=== PATIENT | female | born 1970 | race Caucasian/White ===

== ENCOUNTER 2018-04-30 12:57 | Emergency (ER) | payer MEDICAID, SELFPAY ==
[2018-04-30 13:05] VITALS: BP 159/122; PULSE 108; RESP 16; TEMP 36; O2SAT 95
--- NOTE | 2018-04-30 14:13 | DI.CT_ITS ---
SYMPTOMS/DIAGNOSIS: CHEST PAIN RETROSTERNAL CTA OF THE CHEST: CT angiography was performed with multi slice acquisition and multi planar and 3D reconstruction. There are no prior comparison exams. The aorta and pulmonary arteries are well opacified with IV contrast. There is no evidence of aortic dissection, aneurysm or pulmonary emboli. The heart size is normal. No pleural or pericardial effusions are seen. The lungs are clear. There is no evidence of infiltrate or pneumothorax. No rib or spine fractures are identified. The patient is status post cholecystectomy. The visualized portions of the liver are unremarkable. The spleen, visualized portions of the pancreas, kidneys and adrenals also appear normal. IMPRESSION: Negative chest CT. No evidence of aortic dissection or other acute abnormality.
[2018-04-30] MEDS: FAMOTIDINE 20 MG/50 ML BAG 100 MG IVPB (14:21)
[2018-04-30 14:27] LABS: Abs Immature Grans 0.09 k/cumm (0.0-0.09); Absolute Lymphocyte Count 2.59 k/cumm (1.2-3.4); Basophils % 0.4; Eosinophils % 0.7; HCT 44.1 % (36.0-46.0); HGB 15.3 g/dL (12.0-15.5); Immature Grans % 0.6; Lymphocytes % 15.9; Mean Corp. HGB Concentration 34.7 g/dL (32.0-36.0); Mean Corpuscular Hemoglobin 32.8 pg (27.0-33.0); Mean Corpuscular Volume 94.4 fL (80-95); Mean Platelet Volume 10.7 fL (8.0-11.0); Neutrophils % 76.4; Platelet Count 349 x1000/uL (130-400); RBC 4.67 m/cumm (4.00-5.20); RBC Distribution Width 13.4 % (11.7-14.6)
[2018-04-30 14:38] LABS: Absolute Basophil Count 0.07 k/cumm (0.0-0.2); Absolute Eosinophil Count 0.11 k/cumm (0.0-0.7); Absolute Monocyte Count 0.98 k/cumm (0.11-0.7); Absolute Neutrophil Count 12.45 k/cumm (1.2-6.7)
[2018-04-30 14:41] LABS: ALT 24 U/L (12-78); AST 23 U/L (15-37); Albumin 4.4 g/dL (3.4-5.0); Alkaline Phosphatase 89 U/L (46-116); Anion Gap 12.3 mmol/L (3-11); BUN 9 mg/dL (7-18); Bilirubin, Direct 0.11 mg/dL (0.00-0.20); Bilirubin, Total 0.8 mg/dL (0.2-1.0); CO2 22.7 mmol/L (21.0-32.0); CREATININE 0.86 mg/dL (0.55-1.02); Calcium 9.2 mg/dL (8.5-10.1); Chloride 101 mmol/L (98-107); Glucose 121 mg/dL (70-100); Magnesium 2.2 mg/dL (1.8-2.4); Potassium 3.7 mmol/L (3.5-5.1); Sodium 136 mmol/L (136-145); Total Protein 8.7 g/dL (6.4-8.2)
[2018-04-30 14:42] LABS: Troponin I 1.14 ng/mL (0.00-0.06)
--- NOTE | 2018-04-30 15:06 | W.ED.GENAD ---
Discharge Plan Disposition Patient Disposition: [facility] Discharge Details Chief Complaint: Chest Pain Clinical Impression: Acute non-ST elevation myocardial infarction (NSTEMI) Primary Care Provider: NONE,NONE ED Provider: Kong Coon Medical Decision Making 15:00 --47-year-old female smoker here with chest pain it has been intermittent over the past 4 days. Patient tachycardic and hypertensive on arrival. Not hypoxic and no respiratory distress For acute aortic dissection versus ACS versus reflux esophagitis versus other Plan is to CTA chest. ECG reviewed and interpreted by me: Normal sinus rhythm 76 bpm, normal axis, no STEMI, nondiagnostic. Labs reviewed and troponin is elevated at 1.14. Should CT be unremarkable, plan is to treat for NSTEMI. 16:30 --CT of the chest interpreted by radiology: No dissection and no pulmonary embolism. Starting heparin, Plavix, aspirin, nitroglycerin sublingual and then infusion. Spoke with [facility] [place] to request cardiology transfer. 16:55 -- Spoke with cardiology at [facility] - Dr. Fulton to accept patient in transfer. Agrees with current medication - nitro and heparin. 17:28 -- Patient reassessed and pain resolved on nitro infusion at 10mcg/min. BP improved. HPI General Mode of arrival: ambulatory. Date/Time Provider Initiated Documentation: 04/30/18 14:06. Limitations to Documentation: no limitations. Information obtained by: patient. HPI Narrative: 47-year-old female smoker, otherwise healthy, presents with chief complaint of chest pain. Patient notes that chest pain started 4 days ago and has been intermittent since onset. Pain feels like a moderate burning tightness in her chest. She specifically notes it feels like something is going to tear. Patient thought her symptoms were heartburn. Pain is somewhat positional and changes with inspiration. Patient has no associated shortness of breath. She does have associated fatigue as well as intermittent diaphoresis. Patient denies pain at this time. General Stated Complaint: Chest Pain BETTINA: 2 Review of Systems Review of Systems All systems reviewed & are unremarkable except as noted in HPI and below Cardiovascular Reports as per HPI Respiratory Reports as per HPI Integumentary/Breasts Denies dry skin PFSH Social History Smoking/Tobacco Use Status: Current every day Exam Const General: cooperative and no acute distress HENMT Head: normocephalic and atraumatic Mouth: moist mucous membranes Eyes Conjunctivae: normal conjunctivae Sclera: normal sclerae EOM: EOM intact bilaterally Neck Neck: trachea midline and supple Resp Auscultation: clear to auscultation bilaterally, no rales, no rhonchi and no wheezes Cardio Jugular venous pressure: no JVD Rate: tachycardic Rhythm: regular rhythm GI Palpation: soft, not firm, no guarding, no masses, not rigid and nontender Skin General skin exam: no rashes or lesions noted Neuro General: alert, awake, oriented x3 and tone normal Extrem General: no edema Psych Appearance: grossly normal Mental Status: mental status grossly normal Speech and Movement: speech and movement normal Course Vital Signs Temperature 36 C L 04/30/18 13:05 Pulse 108 H 04/30/18 13:05 Respiratory Rate 16 04/30/18 13:05 Blood Pressure 159/122 H 04/30/18 13:05 Pulse Oximetry 95 04/30/18 13:05 Temperature 36 C L 04/30/18 13:05 Temperature Source Skin 04/30/18 13:05 Pulse 108 H 04/30/18 13:05 Respiratory Rate 16 04/30/18 13:05 Respiratory Effort 04/30/18 13:09 Blood Pressure 159/122 H 04/30/18 13:05 Blood Pressure Position Sitting 04/30/18 13:05 Pulse Oximetry 95 04/30/18 13:05 Oxygen Delivery Method Room Air 04/30/18 13:05 Oxygen Flow Rate 0 04/30/18 13:05 Pain Level 5 04/30/18 13:05 Lab/Test Results Lab/Test Results: Laboratory Tests Range/Units 04/30/18 04/30/18 14:17 14:17 WBC (4.4-10.8) k/cumm 16.30 H RBC (4.00-5.20) m/cumm 4.67 Hgb (12.0-15.5) g/dL 15.3 Hct (36.0-46.0) % 44.1 MCV (80-95) fL 94.4 MCH (27.0-33.0) pg 32.8 MCHC (32.0-36.0) g/dL 34.7 RDW (11.7-14.6) % 13.4 Plt Count (130-400) x1000/uL 349 MPV (8.0-11.0) fL 10.7 Immature Gran % 0.6 Neutrophils % 76.4 Lymphocytes % 15.9 Monocytes % 6.0 Eosinophils % 0.7 Basophils % 0.4 Absolute Neutrophils (1.2-6.7) k/cumm 12.45 H Absolute Lymphocytes (1.2-3.4) k/cumm 2.59 Absolute Monocytes (0.11-0.7) k/cumm 0.98 H Absolute Eosinophils (0.0-0.7) k/cumm 0.11 Absolute Basophils (0.0-0.2) k/cumm 0.07 Sodium (136-145) mmol/L 136 Potassium (3.5-5.1) mmol/L 3.7 Chloride (98-107) mmol/L 101 Carbon Dioxide (21.0-32.0) mmol/L 22.7 Anion Gap (3-11) mmol/L 12.3 H BUN (7-18) mg/dL 9 Creatinine (0.55-1.02) mg/dL 0.86 Estimated GFR/1.73 m2 (mL/min/1.73m2) >= 60.00 Glucose (70-100) mg/dL 121 H Calcium (8.5-10.1) mg/dL 9.2 Magnesium (1.8-2.4) mg/dL 2.2 Total Bilirubin (0.2-1.0) mg/dL 0.8 Conjugated Bilirubin (0.00-0.20) mg/dL 0.11 AST (15-37) U/L 23 ALT (12-78) U/L 24 Alkaline Phosphatase (46-116) U/L 89 Troponin I (0.00-0.06) ng/mL 1.14 H Total Protein (6.4-8.2) g/dL 8.7 H Albumin (3.4-5.0) g/dL 4.4 Critical Care Time Critical Care Time: Yes Total Critical Care Time: 78 Attestation: I spent >78 min addressing this patient's immediate life threats.
--- NOTE | 2018-04-30 15:11 | ED.GENADUL_ITS ---
Discharge Plan Disposition Patient Disposition: [facility] Discharge Details Chief Complaint: Chest Pain Clinical Impression: Acute non-ST elevation myocardial infarction (NSTEMI) Primary Care Provider: NONE,NONE ED Provider: Kong Coon Medical Decision Making 15:00 --47-year-old female smoker here with chest pain it has been intermittent over the past 4 days. Patient tachycardic and hypertensive on arrival. Not hypoxic and no respiratory distress For acute aortic dissection versus ACS versus reflux esophagitis versus other Plan is to CTA chest. ECG reviewed and interpreted by me: Normal sinus rhythm 76 bpm, normal axis, no STEMI, nondiagnostic. Labs reviewed and troponin is elevated at 1.14. Should CT be unremarkable, plan is to treat for NSTEMI. 16:30 --CT of the chest interpreted by radiology: No dissection and no pulmonary embolism. Starting heparin, Plavix, aspirin, nitroglycerin sublingual and then infusion. Spoke with [facility] [place] transfer center to request cardiology transfer. 16:55 -- Spoke with cardiology at [facility] [place] - Dr. Fulton to accept patient in transfer. Agrees with current medication - nitro and heparin. 17:28 -- Patient reassessed and pain resolved on nitro infusion at 10mcg/min. BP improved. HPI General Mode of arrival: ambulatory . Date/Time Provider Initiated Documentation: 04/30/18 14:06 . Limitations to Documentation: no limitations . Information obtained by: patient . HPI Narrative: 47-year-old female smoker, otherwise healthy, presents with chief complaint of chest pain. Patient notes that chest pain started 4 days ago and has been intermittent since onset. Pain feels like a moderate burning tightness in her chest. She specifically notes it feels like something is going to tear. Patient thought her symptoms were heartburn. Pain is somewhat positional and changes with inspiration. Patient has no associated shortness of breath. She does have associated fatigue as well as intermittent diaphoresis. Patient denies pain at this time. General Stated Complaint: Chest Pain BETTINA: 2 Review of Systems Review of Systems All systems reviewed & are unremarkable except as noted in HPI and below Cardiovascular Reports as per HPI Respiratory Reports as per HPI Integumentary/Breasts Denies dry skin PFSH Social History Smoking/Tobacco Use Status: Current every day Exam Const General: cooperative and no acute distress HENMT Head: normocephalic and atraumatic Mouth: moist mucous membranes Eyes Conjunctivae: normal conjunctivae Sclera: normal sclerae EOM: EOM intact bilaterally Neck Neck: trachea midline and supple Resp Auscultation: clear to auscultation bilaterally, no rales, no rhonchi and no wheezes Cardio Jugular venous pressure: no JVD Rate: tachycardic Rhythm: regular rhythm GI Palpation: soft, not firm, no guarding, no masses, not rigid and nontender Skin General skin exam: no rashes or lesions noted Neuro General: alert, awake, oriented x3 and tone normal Extrem General: no edema Psych Appearance: grossly normal Mental Status: mental status grossly normal Speech and Movement: speech and movement normal Course Vital Signs Temperature 36 C L 04/30/18 13:05 Pulse 108 H 04/30/18 13:05 Respiratory Rate 16 04/30/18 13:05 Blood Pressure 159/122 H 04/30/18 13:05 Pulse Oximetry 95 04/30/18 13:05 Temperature 36 C L 04/30/18 13:05 Temperature Source Skin 04/30/18 13:05 Pulse 108 H 04/30/18 13:05 Respiratory Rate 16 04/30/18 13:05 Respiratory Effort 04/30/18 13:09 Blood Pressure 159/122 H 04/30/18 13:05 Blood Pressure Position Sitting 04/30/18 13:05 Pulse Oximetry 95 04/30/18 13:05 Oxygen Delivery Method Room Air 04/30/18 13:05 Oxygen Flow Rate 0 04/30/18 13:05 Pain Level 5 04/30/18 13:05 Lab/Test Results Lab/Test Results: Laboratory Tests Range/Units 04/30/18 04/30/18 14:17 14:17 WBC (4.4-10.8) k/cumm 16.30 H RBC (4.00-5.20) m/cumm 4.67 Hgb (12.0-15.5) g/dL 15.3 Hct (36.0-46.0) % 44.1 MCV (80-95) fL 94.4 MCH (27.0-33.0) pg 32.8 MCHC (32.0-36.0) g/dL 34.7 RDW (11.7-14.6) % 13.4 Plt Count (130-400) x1000/uL 349 MPV (8.0-11.0) fL 10.7 Immature Gran % 0.6 Neutrophils % 76.4 Lymphocytes % 15.9 Monocytes % 6.0 Eosinophils % 0.7 Basophils % 0.4 Absolute Neutrophils (1.2-6.7) k/cumm 12.45 H Absolute Lymphocytes (1.2-3.4) k/cumm 2.59 Absolute Monocytes (0.11-0.7) k/cumm 0.98 H Absolute Eosinophils (0.0-0.7) k/cumm 0.11 Absolute Basophils (0.0-0.2) k/cumm 0.07 Sodium (136-145) mmol/L 136 Potassium (3.5-5.1) mmol/L 3.7 Chloride (98-107) mmol/L 101 Carbon Dioxide (21.0-32.0) mmol/L 22.7 Anion Gap (3-11) mmol/L 12.3 H BUN (7-18) mg/dL 9 Creatinine (0.55-1.02) mg/dL 0.86 Estimated GFR/1.73 m2 (mL/min/1.73m2) >= 60.00 Glucose (70-100) mg/dL 121 H Calcium (8.5-10.1) mg/dL 9.2 Magnesium (1.8-2.4) mg/dL 2.2 Total Bilirubin (0.2-1.0) mg/dL 0.8 Conjugated Bilirubin (0.00-0.20) mg/dL 0.11 AST (15-37) U/L 23 ALT (12-78) U/L 24 Alkaline Phosphatase (46-116) U/L 89 Troponin I (0.00-0.06) ng/mL 1.14 H Total Protein (6.4-8.2) g/dL 8.7 H Albumin (3.4-5.0) g/dL 4.4 Critical Care Time Critical Care Time: Yes Total Critical Care Time: 78 Attestation: I spent >78 min addressing this patient's immediate life threats.
[2018-04-30] MEDS: Omnipaque 350 MG/ML 100 ML BTL IJ (15:30)
[2018-04-30 16:35] LABS: Troponin I 1.58 ng/mL (0.00-0.06)
[2018-04-30] MEDS: Aspirin 325 MG TAB PO (16:47)
[2018-04-30] MEDS: Clopidogrel 300 MG TAB PO (16:47)
[2018-04-30 17:18] LABS: PTT Activated 25.2 sec (21.0-31.4)
[2018-04-30 17:37] VITALS: BP 129/84; PULSE 86; RESP 18; TEMP 36.8; O2SAT 99
[2018-04-30 18:22] VITALS: BP 129/84; PULSE 86; RESP 18; TEMP 36.8; O2SAT 99
== END 2018-04-30 18:20 | disposition short-term general hospital (02) ==
PROVIDERS: Emergency Provider Student in an Organized Health Care Education/Training Program
DX: I21.4 Non-ST elevation (NSTEMI) myocardial infarction (principal); F17.210 Nicotine dependence, cigarettes, uncomplicated
CPT/HCPCS: 36415; 71275; 80053; 80076; 96365; 96366; 96367; 96368; 96376; 99291; 99292; 83735; 84484; 85025; 85730; J3490

== ENCOUNTER 2018-06-07 13:22 | Outpatient (RCR) | payer MEDICAID, SELFPAY | END 2018-06-07 23:59 | disposition home or self-care (01) | LOC: CR 13:22 | PROVIDERS: Visit Provider Family Medicine | DX: I21.4 Non-ST elevation (NSTEMI) myocardial infarction (principal); Z51.89 Encounter for other specified aftercare | CPT/HCPCS: S9472 ==

== ENCOUNTER 2018-06-28 13:50 | Outpatient (RCR) | payer MEDICAID, SELFPAY | END 2018-07-08 23:59 | disposition home or self-care (01) | LOC: CR 13:50 | PROVIDERS: Visit Provider Family Medicine | DX: I25.2 Old myocardial infarction (principal); Z51.89 Encounter for other specified aftercare | CPT/HCPCS: S9472 ==

== ENCOUNTER 2018-08-05 09:30 | Outpatient (RCR) | payer MEDICAID, SELFPAY | END 2018-08-08 23:59 | disposition home or self-care (01) | LOC: CR 09:30 | PROVIDERS: Visit Provider Family Medicine | DX: I25.2 Old myocardial infarction (principal); Z51.89 Encounter for other specified aftercare | CPT/HCPCS: S9472 ==

== ENCOUNTER 2018-09-04 09:00 | Outpatient (RCR) | payer MEDICAID, SELFPAY | END 2018-09-05 23:59 | disposition home or self-care (01) | LOC: CR 09:00 | PROVIDERS: Visit Provider Family Medicine | DX: I25.2 Old myocardial infarction (principal); Z51.89 Encounter for other specified aftercare | CPT/HCPCS: S9472 ==

== ENCOUNTER 2018-09-13 09:00 | Outpatient (RCR) | payer MEDICAID, SELFPAY | END 2018-10-06 23:59 | disposition home or self-care (01) | LOC: CR 09:00 | PROVIDERS: Visit Provider Family Medicine | DX: I25.2 Old myocardial infarction (principal); Z51.89 Encounter for other specified aftercare | CPT/HCPCS: S9472 ==

== ENCOUNTER 2018-12-12 23:18 | Inpatient (IN) | payer MEDICAID, SELFPAY ==
--- NOTE | 2018-12-12 00:20 | DI.CT_ITS ---
SYMPTOM/DIAGNOSIS: ABDOMINAL PAIN CT ABDOMEN AND PELVIS: CT scan of the abdomen and pelvis was performed following the uneventful administration of intravenous contrast material. Comparison CT scan is 04/30/18 No acute abnormalities seen in the lung bases. The liver is normal in size. There is again seen pneumobilia. This was present on the prior examination. The patient is status post cholecystectomy. The bile ducts appear stable. The pancreas is within normal limits. No acute abnormality is seen in the spleen. The adrenal glands are unremarkable. The kidneys show normal and symmetric enhancement. No solid renal mass or obstruction is identified. 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 The urinary bladder is intact. The reproductive organs are unremarkable except for a 2.9 cm left ovarian cyst which does show debris internally likely reflecting hemorrhagic cyst. The abdominal aorta is of normal caliber. No aneurysmal dilatation is seen. No significant abdominal or pelvic adenopathy, ascites or pneumoperitoneum is present. The bowel shows no evidence of obstruction or inflammation. No findings to suggest an acute appendicitis are present. A normal appendix is present. No acute osseous abnormality is identified. IMPRESSION: No acute abnormality is seen in the abdomen or pelvis.
--- NOTE | 2018-12-12 23:22 | W.ED.GENAD ---
Discharge Plan Disposition Patient Disposition: [facility] INPATIENT Condition: Poor Discharge Details Chief Complaint: Abd Prob Clinical Impression: Abdominal pain, Elevated LFTs Primary Care Provider: None,None ED Provider: Ayaan Delgado Meds and New Rx's Prescriptions: No Action atorvastatin 80 mg Tablet 80 mg PO QHS RF: 0 clopidogrel [Plavix] 75 mg Tablet 75 mg PO DAILY RF: 0 aspirin 81 mg Tablet,Delayed Release (Dr/Ec) 81 mg PO DAILY RF: 0 famotidine [Pepcid] 20 mg Tablet 20 mg PO BID RF: 0 nitroglycerin 0.4 mg Tablet, Sublingual 0.4 mg SUBLINGUAL Q5-15M PRNRF: 0 albuterol sulfate 90 mcg/actuation Hfa Aerosol Inhaler 2 puff INHALATION QID PRNRF: 0 lisinopril 2.5 mg Tablet 2.5 mg PO DAILY RF: 0 melatonin 5 mg Tablet 5 mg PO HS PRNRF: 0 Medical Decision Making Patient presenting with 4 hours of severe periumbilical abdominal pain radiating to the back. She has associated nausea but denies vomiting. She has had this intermittently for which she is taking H2 laurent before. She is taking 3 tonight with no relief. She denies having chest pain or shortness of breath. She states that this pain is nothing like the pain she had when she had her non-STEMI last fall. She does have tenderness in the upper abdomen with some voluntary guarding. She is Pernell status post cholecystectomy. She is afebrile. IV established and fluids started. Fentanyl and Zofran given for symptoms. Laboratory studies and CT scan ordered. Patient's pain was better with fentanyl. Patient laboratory studies significant for white count of 11.6. Liver function is elevated including total bili, transaminases, alk phos. Lipase is normal. Troponin is normal. Patient required repeat dosing of fentanyl on return from CAT scan. CT scan is read by radiology as nothing acute. However it is noted that she has pneumobilia and dilated common bile duct. In discussion with the patient it does sound like she likely had an ERCP with sphincterotomy prior to the cholecystectomy years ago when this was done. However, with abnormal liver function and the findings of biliary duct dilatation and pneumobilia need to consider this as a source of her pain. Case discussed with GI fellow, Dr. Farley, at [facility]. Imaging has been sent to [facility]. There are no beds at [facility]. Recommend admission here. Patient to be kept n.p.o. with IV fluids and pain medication as needed. Hospitalist to contact GI liver attending at [facility] in the morning for further discussion. Patient does not appear toxic. She is not febrile here. She continues to have recurrent pain on the fentanyl wears off. I have changed her over to morphine. Case discussed with hospitalist here Dr. Anaya chino. Second troponin has been sent and is negative. Patient will be admitted to [facility] for further management. Medical Records Medical records reviewed: Yes I reviewed the patient's medical records. Lab Data Lab results reviewed: Yes I reviewed the patient's lab results. ECG Data Attestation: I personally reviewed and interpreted this ECG (s) as follows: Prior ECG tracings: available for review Interpretation: Sinus rhythm at 97. Normal axis and intervals. Some flattening in leads III and aVF but otherwise no acute changes. HPI General Mode of arrival: ambulatory. Date/Time Provider Initiated Documentation: 12/12/18 23:22. Limitations to Documentation: no limitations. Information obtained by: patient. HPI Narrative: Patient presents to the ED with complaint of periumbilical/epigastric abdominal pain radiating straight through to the back. Pain has been ongoing since 19:30. Described as sharp and burning in nature. Nausea but no vomiting. Has had this pain intermittently since she had her heart attack last year. Is not having chest pain or upper back pain. Has no shortness of breath. Is treated with H2 blockers intermittently by her doctors at [facility]. She has taken 3 tonight with no relief of pain. She is status post cholecystectomy and has had exploratory laps for [employer] issues in the past. She had a fever last weekend with no other associated symptoms. Those have resolved. She has no diarrhea, black stool, bloody stool. She has no urinary symptoms. She denies caffeine or alcohol use. She denies nonsteroidal use. She denies tobacco use currently. Related Data Home Medications Medication Instructions Recorded Confirmed albuterol sulfate 2 puff INHALATION QID PRN 12/12/18 12/12/18 aspirin 81 mg PO DAILY 12/12/18 12/12/18 atorvastatin 80 mg PO QHS 12/12/18 12/12/18 clopidogrel [Plavix] 75 mg PO DAILY 12/12/18 12/12/18 famotidine [Pepcid] 20 mg PO BID 12/12/18 12/12/18 lisinopril 2.5 mg PO DAILY 12/12/18 12/12/18 melatonin 5 mg PO HS PRN 12/12/18 12/12/18 nitroglycerin 0.4 mg SUBLINGUAL Q5-15M PRN 12/12/18 12/12/18 Allergies Allergy/AdvReac Type Severity Reaction Status Date / Time cefuroxime [From Ceftin] Allergy Intermediate GI Bleeding Unverified 12/12/18 23:30 General BETTINA: 2 Review of Systems Review of Systems 04/21 Review of Systems completed and is negative except as stated above in HPI (Systems reviewed: Const, Eyes, ENT, Resp, CV, GI, , MSK, Skin, Neuro) [facility] Medical History CAD (coronary artery disease) (Chronic) COPD (chronic obstructive pulmonary disease) (Chronic) GERD (gastroesophageal reflux disease) (Chronic) HTN (hypertension) (Chronic) Surgical History History of heart artery stent (Chronic) Hx of exploratory laparotomy (Chronic) S/P cholecystectomy (Chronic) Social History Smoking/Tobacco Use Status: Former Tobacco Use Alcohol Intake: never Substance use type: does not use Do you feel safe in your relationship?: Yes Exam Narrative Exam Narrative: Vitals: Afebrile. Tachycardic and hypertensive likely related to pain and discomfort. Const: WDWN female on stretcher holding abdomen and crying. HEENT: NC/AT. Normal facial exam. Eyes: Normal conjunctiva and sclera. Neck: Supple. Trachea midline. Lungs: Normal respiratory effort. Lungs are clear. Cor: RRR without murmur/gallop. Good radial pulses. GI: Soft and non-distended. Tender in the upper abdominal region, mostly upper vida-umbilcal and epigastric area. Some voluntary guarding. Neuro: A+O x 3. CN grossly in tact. Good strength and no focal deficit. Ext: No C/C/E. No deformity or tenderness. Skin: Warm and dry without rash.
--- NOTE | 2018-12-12 23:26 | ED.GENADUL_ITS ---
Discharge Plan Disposition Patient Disposition: [facility] INPATIENT Condition: Poor Discharge Details Chief Complaint: Abd Prob Clinical Impression: Abdominal pain, Elevated LFTs Primary Care Provider: None,None ED Provider: Ayaan Delgado Meds and New Rx's Prescriptions: No Action atorvastatin 80 mg Tablet 80 mg PO QHS RF: 0 clopidogrel [Plavix] 75 mg Tablet 75 mg PO DAILY RF: 0 aspirin 81 mg Tablet,Delayed Release (Dr/Ec) 81 mg PO DAILY RF: 0 famotidine [Pepcid] 20 mg Tablet 20 mg PO BID RF: 0 nitroglycerin 0.4 mg Tablet, Sublingual 0.4 mg SUBLINGUAL Q5-15M PRNRF: 0 albuterol sulfate 90 mcg/actuation Hfa Aerosol Inhaler 2 puff INHALATION QID PRNRF: 0 lisinopril 2.5 mg Tablet 2.5 mg PO DAILY RF: 0 melatonin 5 mg Tablet 5 mg PO HS PRNRF: 0 Medical Decision Making Patient presenting with 4 hours of severe periumbilical abdominal pain radiating to the back. She has associated nausea but denies vomiting. She has had this intermittently for which she is taking H2 laurent before. She is taking 3 tonight with no relief. She denies having chest pain or shortness of breath. She states that this pain is nothing like the pain she had when she had her non- STEMI last fall. She does have tenderness in the upper abdomen with some voluntary guarding. She is Pernell status post cholecystectomy. She is afebrile. IV established and fluids started. Fentanyl and Zofran given for symptoms. Laboratory studies and CT scan ordered. Patient's pain was better with fentanyl. Patient laboratory studies significant for white count of 11.6. Liver function is elevated including total bili, transaminases, alk phos. Lipase is normal. Troponin is normal. Patient requir ed repeat dosing of fentanyl on return from CAT scan. CT scan is read by radiology as nothing acute. However it is noted that she has pneumobilia and dilated common bile duct. In discussion with the patient it does sound like she likely had an ERCP with sphincterotomy prior to the cholecystectomy years ago when this was done. However, with abnormal liver function and the findings of biliary duct dilatation and pneumobilia need to consider this as a source of her pain. Case discussed with GI fellow, Dr. Farley, at [facility]. Imaging has been sent to [facility]. There are no beds at [facility]. Recommend admission here. Patient to be kept n.p.o. with IV fluids and pain medication as needed. Hospitalist to contact GI liver attending at [facility] in the morning for further discussion. Patient does not appear toxic. She is not febrile here. She continues to have recurrent pain on the fentanyl wears off. I have changed her over to morphine. Case discussed with hospitalist here Dr. Anaya chino. Second troponin has been sent and is negative. Patient will be admitted to [facility] for further management. Medical Records Medical records reviewed: Yes I reviewed the patient's medical records. Lab Data Lab results reviewed: Yes I reviewed the patient's lab results. ECG Data Attestation: I personally reviewed and interpreted this ECG (s) as follows: Prior ECG tracings: available for review Interpretation: Sinus rhythm at 97. Normal axis and intervals. Some flattening in leads III and aVF but otherwise no acute changes. HPI General Mode of arrival: ambulatory . Date/Time Provider Initiated Documentation: 12/12/18 23:22 . Limitations to Documentation: no limitations . Information obtained by: patient . HPI Narrative: Patient presents to the ED with complaint of periumbilical/epigastric abdominal pain radiating straight through to the back. Pain has been ongoing since 19:30. Described as sharp and burning in nature. Nausea but no vomiting. Has had this pain intermittently since she had her heart attack last year. Is not having chest pain or upper back pain. Has no shortness of breath. Is treated with H2 blockers intermittently by her doctors at [facility]. She has taken 3 tonight with no relief of pain. 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 She had a fever last weekend with no other associated symptoms. Those have resolved. She has no diarrhea, black stool, bloody stool. She has no urinary symptoms. She denies caffeine or alcohol use. She denies nonsteroidal use. She denies tobacco use currently. Related Data Home Medications Medication Instructions Recorded Confirmed albuterol sulfate 2 puff INHALATION QID PRN 12/12/18 12/12/18 aspirin 81 mg PO DAILY 12/12/18 12/12/18 atorvastatin 80 mg PO QHS 12/12/18 12/12/18 clopidogrel [Plavix] 75 mg PO DAILY 12/12/18 12/12/18 famotidine [Pepcid] 20 mg PO BID 12/12/18 12/12/18 lisinopril 2.5 mg PO DAILY 12/12/18 12/12/18 melatonin 5 mg PO HS PRN 12/12/18 12/12/18 nitroglycerin 0.4 mg SUBLINGUAL Q5-15M PRN 12/12/18 12/12/18 Allergies Allergy/AdvReac Type Severity Reaction Status Date / Time cefuroxime [From Ceftin] Allergy Intermediate GI Bleeding Unverified 12/12/18 23:30 General BETTINA: 2 Review of Systems Review of Systems 04/21 Review of Systems completed and is negative except as stated above in HPI (Systems reviewed: Const, Eyes, ENT, Resp, CV, GI, , MSK, Skin, Neuro) [facility] Medical History CAD (coronary artery disease) (Chronic) COPD (chronic obstructive pulmonary disease) (Chronic) GERD (gastroesophageal reflux disease) (Chronic) HTN (hypertension) (Chronic) Surgical History History of heart artery stent (Chronic) Hx of exploratory laparotomy (Chronic) S/P cholecystectomy (Chronic) Social History Smoking/Tobacco Use Status: Former Tobacco Use Alcohol Intake: never Substance use type: does not use Do you feel safe in your relationship?: Yes Exam Narrative Exam Narrative: Vitals: Afebrile. Tachycardic and hypertensive likely related to pain and discomfort. Const: WDWN female on stretcher holding abdomen and crying. HEENT: NC/AT. Normal facial exam. Eyes: Normal conjunctiva and sclera. Neck: Supple. Trachea midline. Lungs: Normal respiratory effort. Lungs are clear. Cor: RRR without murmur/gallop. Good radial pulses. GI: Soft and non-distended. Tender in the upper abdominal region, mostly upper vida-umbilcal and epigastric area. Some voluntary guarding. Neuro: A+O x 3. CN grossly in tact. Good strength and no focal deficit. Ext: No C/C/E. No deformity or tenderness. Skin: Warm and dry without rash.
[2018-12-12 23:27] VITALS: BP 189/102; PULSE 114; RESP 20; TEMP 36.6; O2SAT 100
[2018-12-12] MEDS: Lactated Ringers 1,000 ML 1000 ML IV (23:48)
[2018-12-12] MEDS: Ondansetron 4 MG/2 ML VIAL IVP (23:51)
[2018-12-12] MEDS: fentaNYL 100 MCG/2 ML VIAL 50 MCG IVP (23:53)
[2018-12-12 23:54] LABS: Abs Immature Grans 0.09 k/cumm (0.0-0.09); Absolute Basophil Count 0.03 k/cumm (0.0-0.2); Absolute Eosinophil Count 0.22 k/cumm (0.0-0.7); Absolute Lymphocyte Count 1.43 k/cumm (1.2-3.4); Absolute Monocyte Count 0.75 k/cumm (0.11-0.7); Absolute Neutrophil Count 9.13 k/cumm (1.2-6.7); Basophils % 0.3; Eosinophils % 1.9; HCT 37.3 % (36.0-46.0); HGB 12.5 g/dL (12.0-15.5); Immature Grans % 0.8; Lymphocytes % 12.3; Mean Corp. HGB Concentration 33.5 g/dL (32.0-36.0); Mean Corpuscular Hemoglobin 31.6 pg (27.0-33.0); Mean Corpuscular Volume 94.4 fL (80-95); Monocytes % 6.4; Neutrophils % 78.3; Platelet Count 304 x1000/uL (130-400); RBC 3.95 m/cumm (4.00-5.20); RBC Distribution Width 12.9 % (11.7-14.6); White Blood Cell Count 11.66 k/cumm (4.4-10.8)
[2018-12-13] VITALS (23 sets, daily range): BP systolic 100–157; BP diastolic 62–86; PULSE 57–101; RESP 16–20; TEMP 36.7–37.2; O2SAT 94–99
[2018-12-13 00:09] LABS: ALT 237 U/L (12-78); AST 202 U/L (15-37); Albumin 3.8 g/dL (3.4-5.0); Alkaline Phosphatase 476 U/L (46-116); Anion Gap 11.5 mmol/L (3-11); BUN 9 mg/dL (7-18); Bilirubin, Total 1.5 mg/dL (0.2-1.0); CO2 24.5 mmol/L (21.0-32.0); CREATININE 0.85 mg/dL (0.55-1.02); Calcium 9.2 mg/dL (8.5-10.1); Chloride 99 mmol/L (98-107); Glucose 262 mg/dL (70-100); Lipase 263 U/L (73-393); Sodium 135 mmol/L (136-145); Total Protein 8.2 g/dL (6.4-8.2)
[2018-12-13 00:10] LABS: Troponin I < 0.02 ng/mL (0.00-0.06)
[2018-12-13] MEDS: Omnipaque 350 MG/ML 100 ML BTL IJ (00:18)
[2018-12-13 00:35] LABS: Bilirubin Negative (Negative); Blood Negative (Negative); Clarity Clear; Glucose Negative (Negative); Ketones Negative (Negative); Leukocyte Esterase Negative (Negative); Nitrite Negative (Negative); Urobilinogen 0.2 EU/dL (Up TO 0.2); pH 6.5 (5-8)
[2018-12-13 00:51] LABS: *AMPHETAMINES SCREEN URINE Negative (Negative); *BARBITURATES SCREEN URINE Negative (Negative); *BENZODIAZEPINES SCREEN URINE Negative (Negative); Cannabinoids THC POSITIVE (Negative); Cocaine Screen,Urine Negative (Negative); METHADONE URINE SCREEN Negative (Negative); OPIATES URINE SCREEN Negative (Negative)
[2018-12-13 00:52] LABS: Tricyclic Antidepressants Negative (Negative)
--- NOTE | 2018-12-13 01:37 | DI.VRAD_ITS ---
EXAM: CT Abdomen and Pelvis With Contrast EXAM DATE/TIME: 12/12/2018 11:45 PM CLINICAL HISTORY: 48 years old, female; Abdominal pain; Generalized; Prior surgery; Surgery date: 6+ months; Surgery type: Gallbladder, heart stent TECHNIQUE: Imaging protocol: Axial computed tomography images of the abdomen and pelvis with intravenous contrast. Coronal and sagittal reformatted images were created and reviewed. Radiation optimization: All CT scans at this facility use at least one of these dose optimization techniques: automated exposure control; mA and/or kV adjustment per patient size (includes targeted exams where dose is matched to clinical indication); or iterative reconstruction. Contrast material: [id number]; Contrast volume: 100 ml; Contrast route: IV 18G RAC; COMPARISON: No relevant prior studies available. FINDINGS: ABDOMEN: Liver: No focal hepatic lesion identified. Gallbladder and bile ducts: Cholecystectomy with biliary ductal dilatation and pneumobilia. Pancreas: No CT evidence for acute pancreatitis. Spleen: The spleen is elongated at 13.4 cm in anteroposterior dimension. Adrenals: No mass. Kidneys and ureters: Duplicated right renal collecting system. No hydronephrosis or CT evidence for pyelonephritis. Stomach and bowel: No intestinal obstruction is evident. Fecalization of contents in small bowel loops suggests stasis. Appendix: No evidence of appendicitis. PELVIS: Bladder: No acute findings. Reproductive: 2.9 cm left ovarian cyst containing hyperdensity, consistent with hemorrhagic cyst. ABDOMEN and PELVIS: Intraperitoneal space: No free air. Vasculature: Arterial calcifications. No aneurysm identified in the visualized portion of the aorta. Lymph nodes: Prominent portacaval lymph node. Nonspecific mesenteric lymph nodes. IMPRESSION: 1. No acute findings to explain reported symptoms. 2. Nonacute findings as outlined above. Dictated and Authenticated by: Paola Calle MD. Ordering:DAMIEN Kuo MD
[2018-12-13] MEDS: fentaNYL 100 MCG/2 ML VIAL 50 MCG IVP (01:49)
[2018-12-13] MEDS: Pantoprazole 40 MG VIAL IVP (03:22)
[2018-12-13] MEDS: Lactated Ringers 1,000 ML 150 ML IV ×4 (03:43→23:46)
[2018-12-13 04:02] LABS: Troponin I < 0.02 ng/mL (0.00-0.06)
[2018-12-13 04:42] LABS: Procalcitonin 0.2 ng/mL
--- NOTE | 2018-12-13 05:36 | W.PM.HP.N ---
Date of service: 12/13/18 Time of Service: 05:36 Assessment and Plan (1) Abdominal pain: Start date: 12/12/18 Start time: 19:00 Current visit: Yes Status: Acute differential includes choledocholithasis; cholangitis, mesenteric ischemia, hepatitis, pancreatitis. In light of her history of choledocholithiasis and with her elevated alkaline phosphatase and bilirubin and transaminases w/ mild leukocytosis, I am concerned for possible recurrent choledocholithiasis, CT did not show any abnormalities of her bowels to suggest mesenteric ischemia. PUD does not explain her elevated alkaline phosphatase and transaminases and total bilirubin. Her lipase was normal and there were no abnormalities of her pancreas on her CT scan. I am going to order US of her abdomen along w/ repeat LFT'S (including GGT) and CBC and inflammatory markers (ESR, CRP). If she has any fevers or her WBC is rising then she should have blood cultures and start empiric antibiotics for cholangitis. However the fact that she is now afebrile and her WBC is only barely above normal and her procalcitonin is normal (0.2), I do not feel compelled to begin antibiotics. Further consultation should be obtained in the a.m. w/ GI attending at [facility] (note that patient receives her primary care at [facility] along w/ her cardiology care). I do not feel that this is a coronary ischemic equivalent (prolonged pain w/ normal troponin and no EKG changes). Qualifiers: Abdominal location: epigastric Qualified Code(s): R10.13 - Epigastric pain (2) Elevated liver enzymes: Current visit: Yes Status: Acute workup as above. acute hepatitis series has been drawn and sent (3) Elevated glucose: Current visit: Yes Status: Deleted no hx of DM. Will get A1c and monitor her glucose readings and cover w/ low dose sliding scale novolog as needed. (4) History of coronary atherosclerosis: Current visit: No Status: Acute continue her plavix and ASA and statins in light of her [facility] place in April 2018. History of Present Illness Chief Complaint: abdominal pain Narrative: 48 yr old female w/ PMH of choledocholithiasis and cholecystitis who is s/p ERCP and subsequent lap choly in 1994 or 1995 (ERCP done at [facility] now [facility], [place], [place]) and followed a week later by lap choly done in [place], [place]. She also has hx of CAD, NSTEMI 04/30/2018 subsequently transferrred to [facility] for PCI of her RCA ([facility]). Patient now presents to the ER w/ c/o of epigastric and periumbilical abdominal pain w/ radiation to both sides of her abdomen and into her back. She describes the pain as a burning. The pain has been crescendo/decrescendo intensity since 7 pm last night (12/12/2018). This has been associated w/ nausea but no vomiting until she had an emesis shortly after medicated w/ fentanyl. She has hx of GERD as well and tried antacids and pepcid last night w/ no relief. She relates that she had similar abdominal pains beginning last night and thought that this was gas pains and was associated w/ bloating and she noted a low grade fever of 99 that continued into Sunday and Sunday w/ a peak temp of 100.3. Her fever broke early Sunday morning and was associated w/ diaphoresis. She has had no hematemesis, melena, hematochezia, dysuria, chest pain or dyspnea or cough. She has had no ill contacts. Patient was seen in the ER by Dr. Ayaan Delgado, see his ER note for details. Workup included routine labs including CBC w/ diff, CMP, troponin I, lipase, UA; EKG, CT abdomen & pelvis w/ iv contrast. Significant findings include mild leukocytosis 11,660, glucose 262, total bili 1.5, elevated transaminases (AST 202, ALT 237) and alkaline phosphatase (476); normal lipase 263, normal troponin I <0.02 x 2 sets, normal renal function and normal UA. CT abdomen & pelvis demonstrated no focal liver pathology, s/p cholecystectomy w/ biliary ductal dilatation and pneumobilia, no pancreatitis, elongated spleen, no adrenal masses, and duplicated right renal collecting system w/out hydronephrosis or pyelonephritis. 2.9 cm left ovarian cyst w/ hyperdensity c/w hemorrhagic cyst; nonspecific mesenteric lymph noeds and prominent poratcaval lymph node. EKG demonstrated NSR rate 97 bpm w/out ischemic ST-T changes. Dr. Delgado spoke w/ GI fellow at [facility], Dr. Farley who indicated that they had no beds to take the patient in transfer and recommending keeping patient NPO and to give iv fluids, antiemetics and analgesics and to contact the Hepatology attending in the morning. Patient has been afebrile and with stable vital signs while in the ER. Pain has had improved control w/ iv morphine. Review of Systems Review of Systems All systems reviewed & are unremarkable except as noted in HPI and below PFSH Medical History History of coronary atherosclerosis (Acute) History of non-ST elevation myocardial infarction (NSTEMI) (Resolved 04/30/18) CAD (coronary artery disease) (Chronic 04/30/18) COPD (chronic obstructive pulmonary disease) (Chronic) GERD (gastroesophageal reflux disease) (Chronic) HTN (hypertension) (Chronic) Surgical History History of heart artery stent (Chronic 05/01/18) Hx of exploratory laparotomy (Chronic) S/P cholecystectomy (Chronic ~1994) Social History Smoking/Tobacco Use Status: Former Tobacco Use Quit Date: 04/30/18 Pack-years: 61 Alcohol Intake: never Substance use type: does not use Do you feel safe in your relationship?: Yes History History 4 Para Hx # Term Pregnancies 2 Multiple births Hx # Pregnancies Ectopic pregnancies 1 AB induced Hx Number of Living Children 2 AB spontaneous 1 Meds Home Medications Medication Instructions Recorded Confirmed Type albuterol sulfate 2 puff INHALATION QID PRN 12/12/18 12/12/18 History aspirin 81 mg PO DAILY 12/12/18 12/13/18 History atorvastatin 80 mg PO QHS 12/12/18 12/13/18 History clopidogrel [Plavix] 75 mg PO DAILY 12/12/18 12/13/18 History famotidine [Pepcid] 20 mg PO BID 12/12/18 12/12/18 History lisinopril 2.5 mg PO DAILY 12/12/18 12/13/18 History melatonin 5 mg PO HS PRN 12/12/18 12/12/18 History nitroglycerin 0.4 mg SUBLINGUAL Q5-15M PRN 12/12/18 12/12/18 History metoprolol succinate 25 mg PO DAILY 12/13/18 12/13/18 History Allergies Allergy/AdvReac Type Severity Reaction Status Date / Time cefuroxime [From Ceftin] Allergy Intermediate GI Bleeding Unverified 12/12/18 23:30 Exam Const General: cooperative, no acute distress and well groomed Nutritional Appearance: well nourished and overweight Orientation: alert, awake and oriented x3 [facility] Head: normal to inspection, no palpable skull fracture, normocephalic and atraumatic Face and sinus: normal facial exam, sinuses nontender and face symmetric Mouth: oral mucosae normal, lip normal, tongue normal, oropharynx normal and moist mucous membranes Teeth and gingiva: dentition normal and gingiva normal Throat: posterior oropharynx normal and uvula midline Eyes General: appearance normal, both eyes and all related structures Alignment and Position: alignment normal Periorbital: periorbital findings normal Eyelids: eyelids normal Conjunctivae: conjunctivae normal Sclera: sclerae normal Cornea: corneas normal Pupils: PERRL, normal by confrontation and accommodation normal EOM: EOM intact bilaterally Neck Neck: normal visual inspection, full ROM, no lymphadenopathy, trachea midline and supple Thyroid: thyroid normal Carotids: normal carotid upstroke Lymphatic: no lymphadenopathy noted Chest Chest: normal inspection of the chest and normal palpation of entire chest wall Resp Effort & Inspection: normal respiratory effort and able to speak in complete sentences Auscultation: clear to auscultation bilaterally Percussion: percussion normal Cardio Jugular venous pressure: no JVD Palpation: normal PMI Rate: regular rate Rhythm: regular rhythm Heart Sounds: S1 normal, S2 normal and normal, physiologic split S2 Pulses: normal peripheral pulses GI Inspection: normal to inspection Palpation: soft, no hepatosplenomegaly and tender in the epigastrum and in the RUQ; Guzman's sign negative and with no rebound tenderness Percussion: normal to percussion Auscultation: normal bowel sounds General: bimanual renal exam normal bilaterally, bladder normal to inspection and No CVA tenderness Back/Spine/Pelvis Back: no CVA tenderness Cervical Spine: normal cervical lordosis and cervical ROM normal Thoracic/Lumbar Spine: thoracic and lumbar spine normal to inspection and thoraco-lumbar ROM normal Skin General skin exam: no rashes or lesions noted, elasticity normal, turgor normal and other (multiple tatoos over her left arm, back, posterior left shoulder) Lesions: no lesions Rashes: no rashes Trauma: no lacerations or abrasions Hair: normal Nails: normal Neuro General: alert, awake, oriented x3, moves all extremities and no focal motor deficits Cognition: normal cognition Speech: speech normal Motor: muscle tone normal throughout, strength 5/5 throughout, no pronator drift, no movement abnormalities noted and no fasciculations Sensory Exam: no sensory deficits noted Extrem General: normal to inspection, full ROM, normal capillary refill, no joint enlargement, no clubbing, cyanosis or edema and no calf tenderness bilaterally Psych Appearance: grossly normal Mental Status: mental status grossly normal Speech and Movement: speech and movement normal Mood: congruent mood Affect: normal affect Attitude: cooperative Thought Content: normal Insight: insight good Judgment: judgment good Results Imaging Abdomen CT scan report/results: report reviewed Labs : 12/14/18 06:24 12/14/18 06:24 Laboratory Results - last 24 hr 12/12/18 12/12/18 12/13/18 23:36 23:36 00:20 WBC 11.66 H RBC 3.95 L Hgb 12.5 Hct 37.3 MCV 94.4 MCH 31.6 MCHC 33.5 RDW 12.9 Plt Count 304 MPV 10.0 Immature Gran % 0.8 Neutrophils % 78.3 Lymphocytes % 12.3 Monocytes % 6.4 Eosinophils % 1.9 Basophils % 0.3 Absolute Neutrophils 9.13 H Absolute Lymphocytes 1.43 Absolute Monocytes 0.75 H Absolute Eosinophils 0.22 Absolute Basophils 0.03 Sodium 135 L Potassium 4.0 Chloride 99 Carbon Dioxide 24.5 Anion Gap 11.5 H BUN 9 Creatinine 0.85 Estimated GFR/1.73 m2 >= 60.00 Glucose 262 H Calcium 9.2 Magnesium 2.0 Total Bilirubin 1.5 H AST 202 H ALT 237 H Alkaline Phosphatase 476 H Troponin I < 0.02 Total Protein 8.2 Albumin 3.8 Lipase 263 Procalcitonin Urine Color Yellow Urine Clarity Clear Urine pH 6.5 Ur Specific [place] 1.010 Urine Protein Negative Urine Ketones Negative Urine Blood Negative Urine Nitrite Negative Urine Bilirubin Negative Urine Urobilinogen 0.2 Ur Leukocyte Esterase Negative Urine Glucose Negative Urine Opiates Screen Urine Methadone Screen Ur Barbiturates Screen Ur Tricyclics Screen Ur Amphetamines Screen U Benzodiazepines Scrn Urine Cocaine Screen Ur THC Screen 12/13/18 12/13/18 12/13/18 00:20 03:30 03:30 WBC RBC Hgb Hct MCV MCH MCHC RDW Plt Count MPV Immature Gran % Neutrophils % Lymphocytes % Monocytes % Eosinophils % Basophils % Absolute Neutrophils Absolute Lymphocytes Absolute Monocytes Absolute Eosinophils Absolute Basophils Sodium Potassium Chloride Carbon Dioxide Anion Gap BUN Creatinine Estimated GFR/1.73 m2 Glucose Calcium Magnesium Total Bilirubin AST ALT Alkaline Phosphatase Troponin I < 0.02 Total Protein Albumin Lipase Procalcitonin 0.2 Urine Color Urine Clarity Urine pH Ur Specific [place] Urine Protein Urine Ketones Urine Blood Urine Nitrite Urine Bilirubin Urine Urobilinogen Ur Leukocyte Esterase Urine Glucose Urine Opiates Screen Negative Urine Methadone Screen Negative Ur Barbiturates Screen Negative Ur Tricyclics Screen Negative Ur Amphetamines Screen Negative U Benzodiazepines Scrn Negative Urine Cocaine Screen Negative Ur THC Screen Positive Last Vital Signs Temp 36.6 C 12/12/18 23:27 Pulse 101 H 12/13/18 04:51 Resp 20 12/13/18 04:51 BP 139/68 12/13/18 04:51 Pulse Ox 98 12/13/18 04:51
--- NOTE | 2018-12-13 05:42 | HPE_ITS ---
Date of service: 12/13/18 Time of Service: 05:36 Assessment and Plan (1) Abdominal pain: Start date: 12/12/18 Start time: 19:00 Current visit: Yes Status: Acute differential includes choledocholithasis; cholangitis, mesenteric ischemia, hepatitis, pancreatitis. In light of her history of choledocholithiasis and with her elevated alkaline phosphatase and bilirubin and transaminases w/ mild leukocytosis, I am concerned for possible recurrent choledocholithiasis, CT did not show any abnormalities of her bowels to suggest mesenteric ischemia. PUD does not explain her elevated alkaline phosphatase and transaminases and total bilirubin. Her lipase was normal and there were no abnormalities of her pancreas on her CT scan. I am going to order US of her abdomen along w/ repeat LFT'S (including GGT) and CBC and inflammatory markers (ESR, CRP). If she has any fevers or her WBC is rising then she should have blood cultures and start empiric antibiotics for cholangitis. However the fact that she is now afebrile and her WBC is only barely above normal and her procalcitonin is normal (0.2), I do not feel compelled to begin antibiotics. Further consultation should be obtained in the a.[place]. w/ [place] [facility] [place]note that patient receives her primary care at [facility] [place] w/ her cardiology care). I do not feel that this is a coronary ischemic equivalent (prolonged pain w/ normal troponin and no EKG changes). Qualifiers: Abdominal location: epigastric Qualified Code(s): R10.13 - Epigastric pain (2) Elevated liver enzymes: Current visit: Yes Status: Acute workup as above. acute hepatitis series has been drawn and sent (3) Elevated glucose: Current visit: Yes Status: Deleted no hx of DM. Will get A1c and monitor her glucose readings and cover w/ low dose sliding scale novolog as needed. (4) History of coronary atherosclerosis: Current visit: No Status: Acute continue her plavix and ASA and statins in light of her [facility] place in April 2018. History of Present Illness Chief Complaint: abdominal pain Narrative: 48 yr old female w/ PMH of choledocholithiasis and cholecystitis who is s/p ERCP and subsequent lap choly in 1994 or 1995 (ERCP done at [facility], [place], [place]) and followed a week later by lap choly done in [place], [place]. She also has hx of CAD, NSTEMI 04/30/2018 subsequently transferrred to [facility] [place] PCI of her RCA ([facility]). Patient now presents to the ER w/ c/o of epigastric and periumbilical abdominal pain w/ radiation to both sides of her abdomen and into her back. She describes the pain as a burning. The pain has been crescendo/decrescendo intensity since 7 pm last night (12/12/2018). This has been associated w/ nausea but no vomiting until she had an emesis shortly after medicated w/ fentanyl. She has hx of GERD as well and tried antacids and pepcid last night w/ no relief. She relates that she had similar abdominal pains beginning last night and thought that this was gas pains and was associated w/ bloating and she noted a low grade fever of 99 that continued into Sunday and Sunday w/ a peak temp of 100.3. Her fever broke early Sunday morning and was associated w/ diaphoresis. She has had no hematemesis, melena, hematochezia, dysuria, chest pain or dyspnea or cough. She has had no ill contacts. Patient was seen in the ER by Dr. Ayaan Delgado, see his ER note for details. Workup included routine labs including CBC w/ diff, CMP, troponin I, lipase, UA; EKG, CT abdomen & pelvis w/ iv contrast. Significant findings include mild leukocytosis 11,660, glucose 262, total bili 1.5, elevated transaminases (AST 202, ALT 237) and alkaline phosphatase (476); normal lipase 263, normal troponin I <0.02 x 2 sets, normal renal function and normal UA. CT abdomen & pelvis demonstrated no focal liver pathology, s/p cholecystectomy w/ biliary ductal dilatation and pneumobilia, no pancreatitis, elongated spleen, no adrenal masses, and duplicated right renal collecting system w/out hydronephrosis or pyelonephritis. 2.9 cm left ovarian cyst w/ hyperdensity c/w hemorrhagic cyst; nonspecific mesenteric lymph noeds and prominent poratcaval lymph node. EKG demonstrated NSR rate 97 bpm w/out ischemic ST-T changes. Dr. Delgado spoke w/ GI fellow at [facility], Dr. Farlye who indicated that they had no beds to take the patient in transfer and recommending keeping patient NPO and to give iv fluids, antiemetics and analgesics and to contact the Hepatology attending in the morning. Patient has been afebrile and with stable vital signs while in the ER. Pain has had improved control w/ iv morphine. Review of Systems Review of Systems All systems reviewed & are unremarkable except as noted in HPI and below PFSH Medical History History of coronary atherosclerosis (Acute) History of non-ST elevation myocardial infarction (NSTEMI) (Resolved 04/30/18) CAD (coronary artery disease) (Chronic 04/30/18) COPD (chronic obstructive pulmonary disease) (Chronic) GERD (gastroesophageal reflux disease) (Chronic) HTN (hypertension) (Chronic) Surgical History History of heart artery stent (Chronic 05/01/18) Hx of exploratory laparotomy (Chronic) S/P cholecystectomy (Chronic ~1994) Social History Smoking/Tobacco Use Status: Former Tobacco Use Quit Date: 04/30/18 Pack-years: 61 Alcohol Intake: never Substance use type: does not use Do you feel safe in your relationship?: Yes History History 4 Para Hx # Term Pregnancies 2 Multiple births Hx # Pregnancies Ectopic pregnancies 1 AB induced Hx Number of Living Children 2 AB spontaneous 1 Meds Home Medications Medication Instructions Recorded Confirmed Type albuterol sulfate 2 puff INHALATION QID PRN 12/12/18 12/12/18 History aspirin 81 mg PO DAILY 12/12/18 12/13/18 History atorvastatin 80 mg PO QHS 12/12/18 12/13/18 History clopidogrel [Plavix] 75 mg PO DAILY 12/12/18 12/13/18 History famotidine [Pepcid] 20 mg PO BID 12/12/18 12/12/18 History lisinopril 2.5 mg PO DAILY 12/12/18 12/13/18 History melatonin 5 mg PO HS PRN 12/12/18 12/12/18 History nitroglycerin 0.4 mg SUBLINGUAL Q5-15M PRN 12/12/18 12/12/18 History metoprolol succinate 25 mg PO DAILY 12/13/18 12/13/18 History Allergies Allergy/AdvReac Type Severity Reaction Status Date / Time cefuroxime [From Ceftin] Allergy Intermediate GI Bleeding Unverified 12/12/18 23:30 Exam Const General: cooperative, no acute distress and well groomed Nutritional Appearance: well nourished and overweight Orientation: alert, awake and oriented x3 [facility] Head: normal to inspection, no palpable skull fracture, normocephalic and atraumatic Face and sinus: normal facial exam, sinuses nontender and face symmetric Mouth: oral mucosae normal, lip normal, tongue normal, oropharynx normal and moist mucous membranes Teeth and gingiva: dentition normal and gingiva normal Throat: posterior oropharynx normal and uvula midline Eyes General: appearance normal, both eyes and all related structures Alignment and Position: alignment normal Periorbital: periorbital findings normal Eyelids: eyelids normal Conjunctivae: conjunctivae normal Sclera: sclerae normal Cornea: corneas normal Pupils: PERRL, normal by confrontation and accommodation normal EOM: EOM intact bilaterally Neck Neck: normal visual inspection, full ROM, no lymphadenopathy, trachea midline and supple Thyroid: thyroid normal Carotids: normal carotid upstroke Lymphatic: no lymphadenopathy noted Chest Chest: normal inspection of the chest and normal palpation of entire chest wall Resp Effort & Inspection: normal respiratory effort and able to speak in complete sentences Auscultation: clear to auscultation bilaterally Percussion: percussion normal Cardio Jugular venous pressure: no JVD Palpation: normal PMI Rate: regular rate Rhythm: regular rhythm Heart Sounds: S1 normal, S2 normal and normal, physiologic split S2 Pulses: normal peripheral pulses GI Inspection: normal to inspection Palpation: soft, no hepatosplenomegaly and tender in the epigastrum and in the R UQ; Guzman's sign negative and with no rebound tenderness Percussion: normal to percussion Auscultation: normal bowel sounds General: bimanual renal exam normal bilaterally, bladder normal to inspection and No CVA tenderness Back/Spine/Pelvis Back: no CVA tenderness Cervical Spine: normal cervical lordosis and cervical ROM normal Thoracic/Lumbar Spine: thoracic and lumbar spine normal to inspection and thoraco-lumbar ROM normal Skin General skin exam: no rashes or lesions noted, elasticity normal, turgor normal and other (multiple tatoos over her left arm, back, posterior left shoulder) Lesions: no lesions Rashes: no rashes Trauma: no lacerations or abrasions Hair: normal Nails: normal Neuro General: alert, awake, oriented x3, moves all extremities and no focal motor deficits Cognition: normal cognition Speech: speech normal Motor: muscle tone normal throughout, strength 5/5 throughout, no pronator drift, no movement abnormalities noted and no fasciculations Sensory Exam: no sensory deficits noted Extrem General: normal to inspection, full ROM, normal capillary refill, no joint enlargement, no clubbing, cyanosis or edema and no calf tenderness bilaterally Psych Appearance: grossly normal Mental Status: mental status grossly normal Speech and Movement: speech and movement normal Mood: congruent mood Affect: normal affect Attitude: cooperative Thought Content: normal Insight: insight good Judgment: judgment good Results Imaging Abdomen CT scan report/results: report reviewed Labs : 12/14/18 06:24 12/14/18 06:24 Laboratory Results - last 24 hr 12/12/18 12/12/18 12/13/18 23:36 23:36 00:20 WBC 11.66 H RBC 3.95 L Hgb 12.5 Hct 37.3 MCV 94.4 MCH 31.6 MCHC 33.5 RDW 12.9 Plt Count 304 MPV 10.0 Immature Gran % 0.8 Neutrophils % 78.3 Lymphocytes % 12.3 Monocytes % 6.4 Eosinophils % 1.9 Basophils % 0.3 Absolute Neutrophils 9.13 H Absolute Lymphocytes 1.43 Absolute Monocytes 0.75 H Absolute Eosinophils 0.22 Absolute Basophils 0.03 Sodium 135 L Potassium 4.0 Chloride 99 Carbon Dioxide 24.5 Anion Gap 11.5 H BUN 9 Creatinine 0.85 Estimated GFR/1.73 m2 >= 60.00 Glucose 262 H Calcium 9.2 Magnesium 2.0 Total Bilirubin 1.5 H AST 202 H ALT 237 H Alkaline Phosphatase 476 H Troponin I < 0.02 Total Protein 8.2 Albumin 3.8 Lipase 263 Procalcitonin Urine Color Yellow Urine Clarity Clear Urine pH 6.5 Ur Specific [place] 1.010 Urine Protein Negative Urine Ketones Negative Urine Blood Negative Urine Nitrite Negative Urine Bilirubin Negative Urine Urobilinogen 0.2 Ur Leukocyte Esterase Negative Urine Glucose Negative Urine Opiates Screen Urine Methadone Screen Ur Barbiturates Screen Ur Tricyclics Screen Ur Amphetamines Screen U Benzodiazepines Scrn Urine Cocaine Screen Ur THC Screen 12/13/18 12/13/18 12/13/18 00:20 03:30 03:30 WBC RBC Hgb Hct MCV MCH MCHC RDW Plt Count MPV Immature Gran % Neutrophils % Lymphocytes % Monocytes % Eosinophils % Basophils % Absolute Neutrophils Absolute Lymphocytes Absolute Monocytes Absolute Eosinophils Absolute Basophils Sodium Potassium Chloride Carbon Dioxide Anion Gap BUN Creatinine Estimated GFR/1.73 m2 Glucose Calcium Magnesium Total Bilirubin AST ALT Alkaline Phosphatase Troponin I < 0.02 Total Protein Albumin Lipase Procalcitonin 0.2 Urine Color Urine Clarity Urine pH Ur Specific [place] Urine Protein Urine Ketones Urine Blood Urine Nitrite Urine Bilirubin Urine Urobilinogen Ur Leukocyte Esterase Urine Glucose Urine Opiates Screen Negative Urine Methadone Screen Negative Ur Barbiturates Screen Negative Ur Tricyclics Screen Negative Ur Amphetamines Screen Negative U Benzodiazepines Scrn Negative Urine Cocaine Screen Negative Ur THC Screen Positive Last Vital Signs Temp 36.6 C 12/12/18 23:27 Pulse 101 H 12/13/18 04:51 Resp 20 12/13/18 04:51 BP 139/68 12/13/18 04:51 Pulse Ox 98 12/13/18 04:51
--- NOTE | 2018-12-13 08:05 | PHARADMIT ---
Addendum entered by Gege Casiano 12/15/18 10:09: Pharmacy Note Subjective down and [place] [facility] [place] Objective pain 3-01/15, A1c 7.2 Assessment metronidazole, ciprofloxain Iv (STARTED 12/13)continue NPO tonight in preparation of ERCP tomorrow, continuing clopidogrel([facility] aware) Plan monitor pain control, med changes Original Note: Admission Pharmacy Clinical Review ABDOMINAL PAIN, ELEVATED LFTs Code Status Full Code Current Weight Wgt- 81.6 kg Renally Cleared and Narrow Therapeutic Index Meds CrCl~ 73.6mL/min Meds-OK QTc Value / Action Taken QTc-424 NA BP Control, Fever BP- 157/86 Tmax- 36.8C Electrolytes reviewed Na- 135 K+4.0 Mag- 2.0 DVT Prophylaxis Plavix,Lovenox.ASA-EC Opiate Usage / Scheduled Bowel Regimen Ordered Yes No Plt/SCr for Heparin / Enoxaparin Plts- 304 SCr-0.85 INR for Warfarin NA H/H stable, WBC/Bands H&H- 12.5/37.3 WBC- 11.66 Antibiotic appropriateness none Cultures and Sensitivities NA Surgical ABX d/c within 24 hr NA DM control / Insulin Dosing BG-262, Aspart Heart Failure (Check EF%) (XENIA's, B-Block, Diuretics) Lisinopril, Toprol-XL, NTG IV to PO Switch No Home Meds Reviewed Yes Home Meds Not Ordered All ordered Comments AST-202 ALT-237 ALK-PHOS- 476
[2018-12-13] MEDS: Enoxaparin 40 MG/0.4 ML SYR SC (08:09)
[2018-12-13] MEDS: Metoprolol CR 25 MG TABCR PO (08:10)
[2018-12-13] MEDS: Clopidogrel 75 MG TAB PO (08:10)
[2018-12-13] MEDS: Lisinopril 5 MG TAB 2.5 MG PO (08:10)
[2018-12-13] MEDS: Aspirin E.C. 81 MG TABEC PO (08:10)
[2018-12-13 08:12] LABS: Abs Immature Grans 0.06 k/cumm (0.0-0.09); Absolute Basophil Count 0.02 k/cumm (0.0-0.2); Absolute Lymphocyte Count 1.13 k/cumm (1.2-3.4); Absolute Monocyte Count 1.15 k/cumm (0.11-0.7); Basophils % 0.2; Eosinophils % 0.9; HCT 34.6 % (36.0-46.0); HGB 11.4 g/dL (12.0-15.5); Immature Grans % 0.5; Lymphocytes % 9.6; Mean Corp. HGB Concentration 32.9 g/dL (32.0-36.0); Mean Corpuscular Hemoglobin 31.3 pg (27.0-33.0); Mean Corpuscular Volume 95.1 fL (80-95); Mean Platelet Volume 10.1 fL (8.0-11.0); Monocytes % 9.8; Platelet Count 273 x1000/uL (130-400); RBC 3.64 m/cumm (4.00-5.20); RBC Distribution Width 13.2 % (11.7-14.6); White Blood Cell Count 11.74 k/cumm (4.4-10.8)
[2018-12-13 08:17] LABS: Hemoglobin A1C 7.5 % (4.5-6.2)
[2018-12-13 08:20] LABS: ALT 304 U/L (12-78); AST 244 U/L (15-37); Absolute Eosinophil Count 0.11 k/cumm (0.0-0.7); Absolute Neutrophil Count 9.27 k/cumm (1.2-6.7); Albumin 3.4 g/dL (3.4-5.0); Alkaline Phosphatase 438 U/L (46-116); Anion Gap 10.2 mmol/L (3-11); BUN 6 mg/dL (7-18); Bilirubin, Direct 1.55 mg/dL (0.00-0.20); Bilirubin, Total 2.4 mg/dL (0.2-1.0); C-Reactive Protein 2.28 mg/dL (0.0-0.3); CO2 25.8 mmol/L (21.0-32.0); Calcium 8.8 mg/dL (8.5-10.1); Chloride 102 mmol/L (98-107); Glucose 168 mg/dL (70-100); Potassium 3.7 mmol/L (3.5-5.1); Sodium 138 mmol/L (136-145); Total Protein 7.3 g/dL (6.4-8.2)
[2018-12-13 08:42] LABS: GGT 821 U/L (5-55)
[2018-12-13 09:00] LABS: ESR 62 MM/HR (0-20)
[2018-12-13] MEDS: FAMOTIDINE 20 MG/50 ML BAG 200 MG IVPB ×2 (09:03→19:48)
[2018-12-13] MEDS: Normal Saline 50 ML 200 ML (09:35)
--- NOTE | 2018-12-13 10:09 | PDOC.CMIN ---
Care Management Initial Assess REASON FOR HOSPITALIZATION:: abdominal pain, elevated LFT's PAST MEDICAL HISTORY/PAST SURGICAL HISTORY:: Medical: H/O coronary atherosclerosis, H/O non-ST elevation [place] (NSTEMI), CAD, COPD, GERD, HTN. Surgical: H/O heart artery stent, exploratory laparotomy, s/p cholecystectomy. PREVIOUS FUNCTIONAL STATUS/SOCIAL/FAMILY SUPPORTS:: Lucina is 48 yo woman who lives with her Johnny in [place] with their 2 adult sons. She does not work, but is usually independent with all ADL's. She gets all of her care at [facility]. CURRENT FUNCTIONAL STATUS:: Lying in bed when CM enters. She is able to get up independently and walk in room. She easily engages in discussion re plans. ADVANCE DIRECTIVES:: Does not have document and declined information. Has patient been provided with information about the portal?: Yes Did the patient sign up for the portal?: Yes INSURANCE COVERAGE / FINANCIAL ISSUES:: Medicaid CURRENT HOME/COMMUNITY SERVICES/EQUIPMENT:: No services or equipment used. PRIMARY CARE PHYSICIAN:: Dr Montes at [facility] POTENTIAL DISCHARGE NEEDS:: Will need follow-up with PCP as directed. PATIENT/FAMILY EDUCATION NEEDS:: Review d/c instructions re meds and activity levels. Review Ask me Now questions. ANTICIPATED BARRIERS TO DISCHARGE:: none identified TRANSPORTATION:: via car with PLAN:: d/c home as per MD, no services anticipated.
--- NOTE | 2018-12-13 11:00 | DI.US_ITS ---
SYMPTOM/DIAGNOSIS: ABD PAIN, ELEVATED LFT'S ABDOMEN ULTRASOUND: Routine examination was performed. The abdominal aorta is of normal caliber. The inferior vena cava is unremarkable. The liver is normal in size. There is diffuse increased echogenicity of the liver consistent with fatty infiltration. No hepatic mass is seen sonographically. The patient is status post cholecystectomy. The common duct measures 1 cm. and tapers down to 0.7 cm. This likely reflects post cholecystectomy changes. The pancreatic tail was not visualized. The remainder of the pancreas is unremarkable. The kidneys and spleen are unremarkable. IMPRESSION: 1. Hepatic steatosis. 2. Status post cholecystectomy.
[2018-12-13] MEDS: CIPROFLOXACIN 200 MG/100 ML BAG 100 MG IVPB ×2 (11:09→22:17)
[2018-12-13] MEDS: Normal Saline Flush 10 ML SYR IVP ×4 (11:09→22:17)
--- NOTE | 2018-12-13 14:10 | DI.MRI_ITS ---
SYMPTOMS/DIAGNOSIS: CONCERN FOR CHOLEDOCHOLITHIASIS MRCP: There is an 8 mm ovoid filling defect seen in the common bile duct approximately 1 cm from the ampulla consistent with choledocholithiasis. There is dilatation of the extrahepatic bile duct. No other filling defects are appreciated. The unenhanced liver, spleen, pancreas and adrenal glands are unremarkable. The patient is status post cholecystectomy. The visualized portions of the kidneys are grossly unremarkable. No free fluid is seen in the upper abdomen. IMPRESSION: 8 mm stone in the common bile duct consistent with choledocholithiasis.
[2018-12-13] MEDS: metroNIDAZOLE 500 MG/100 ML BAG 100 MG IVPB ×3 (14:27→23:43)
--- NOTE | 2018-12-13 15:49 | INITIAL_ITS ---
Care Management Initial Assess REASON FOR HOSPITALIZATION:: abdominal pain, elevated LFT's PAST MEDICAL HISTORY/PAST SURGICAL HISTORY:: Medical: H/O coronary atherosclerosis, H/O non-ST elevation [place] (NSTEMI), CAD, COPD, GERD, HTN. Surgical: H/O heart artery stent, exploratory laparotomy, s/p cholecystectomy. PREVIOUS FUNCTIONAL STATUS/SOCIAL/FAMILY SUPPORTS:: Lucina is 48 yo woman who lives with her Johnny in [place] with their 2 adult sons. She does not work, but is usually independent with all ADL's. She gets all of her care at [facility]. CURRENT FUNCTIONAL STATUS:: Lying in bed when CM enters. She is able to get up independently and walk in room. She easily engages in discussion re plans. ADVANCE DIRECTIVES:: Does not have document and declined information. Has patient been provided with information about the portal?: Yes Did the patient sign up for the portal?: Yes INSURANCE COVERAGE / FINANCIAL ISSUES:: Medicaid CURRENT HOME/COMMUNITY SERVICES/EQUIPMENT:: No services or equipment used. PRIMARY CARE PHYSICIAN:: Dr Montes at [facility] POTENTIAL DISCHARGE NEEDS:: Will need follow-up with PCP as directed. PATIENT/FAMILY EDUCATION NEEDS:: Review d/c instructions re meds and activity levels. Review Ask me Now questions. ANTICIPATED BARRIERS TO DISCHARGE:: none identified TRANSPORTATION:: via car with PLAN:: d/c home as per MD, no services anticipated.
[2018-12-13] MEDS: Insulin Aspart 300 UNITS/3 ML PEN SC (16:58)
--- NOTE | 2018-12-13 17:55 | PGE_ITS ---
Date of Service Date of service: 12/13/18 Time of Service: 17:54 Subjective Interval history since last seen: Ms Chino's MRCP reveals an 8 mm CBD stone, c/w choledocholithiasis. Case [place] with [facility] agrees to take the patient as down and back transfer for ERCP on Sunday. Until then, we are recommended to put the patient on antibiotics (cipro/flagyl started) and continue to monitor her. If her LFT's/condition deteriorate, she would have to be transferred faster. There are no beds available at [facility] [place] this [place]. Lovenox on hold. Patient may have clear liquids until tonight, then NPO. Per Dr Williamson, ok to continue the patient on asa/plavix. Objective Objective Clinical Data: Abnormal lab results 12/12/18 12/12/18 12/13/18 Range/Units 23:36 23:36 07:50 WBC 11.66 H (4.4-10.8) k/cumm RBC 3.95 L (4.00-5.20) m/cumm Hgb (12.0-15.5) g/dL Hct (36.0-46.0) % MCV (80-95) fL Absolute Neutrophils 9.13 H (1.2-6.7) k/cumm Absolute Lymphocytes (1.2-3.4) k/cumm Absolute Monocytes 0.75 H (0.11-0.7) k/cumm ESR (0-20) MM/HR Sodium 135 L (136-145) mmol/L Anion Gap 11.5 H (3-11) mmol/L BUN 6 L (7-18) mg/dL Glucose 262 H 168 H D (70-100) mg/dL Hemoglobin A1c (4.5-6.2) % Total Bilirubin 1.5 H 2.4 H (0.2-1.0) mg/dL Conjugated Bilirubin 1.55 H (0.00-0.20) mg/dL GGT 821 H (5-55) U/L AST 202 H 244 H (15-37) U/L ALT 237 H 304 H (12-78) U/L Alkaline Phosphatase 476 H 438 H (46-116) U/L C-Reactive Protein 2.28 H (0.0-0.3) mg/dL 12/13/18 12/13/18 Range/Units 07:50 07:50 WBC 11.74 H (4.4-10.8) k/cumm RBC 3.64 L (4.00-5.20) m/cumm Hgb 11.4 L (12.0-15.5) g/dL Hct 34.6 L (36.0-46.0) % MCV 95.1 H (80-95) fL Absolute Neutrophils 9.27 H (1.2-6.7) k/cumm Absolute Lymphocytes 1.13 L (1.2-3.4) k/cumm Absolute Monocytes 1.15 H (0.11-0.7) k/cumm ESR 62 H (0-20) MM/HR Sodium (136-145) mmol/L Anion Gap (3-11) mmol/L BUN (7-18) mg/dL Glucose (70-100) mg/dL Hemoglobin A1c 7.5 H (4.5-6.2) % Total Bilirubin (0.2-1.0) mg/dL Conjugated Bilirubin (0.00-0.20) mg/dL GGT (5-55) U/L AST (15-37) U/L ALT (12-78) U/L Alkaline Phosphatase (46-116) U/L C-Reactive Protein (0.0-0.3) mg/dL Vital Signs Temperature 36.9 C 12/13/18 15:52 Temperature Source Tympanic 12/13/18 15:52 Pulse 74 12/13/18 15:52 Pulse Rhythm Regular 12/13/18 16:18 Respiratory Rate 16 12/13/18 15:52 Respiratory Effort 12/13/18 16:18 Respiratory Depth Normal 12/13/18 16:18 Respiratory Pattern Normal 12/13/18 16:18 Blood Pressure 108/73 12/13/18 15:52 Blood Pressure Mean 87 12/13/18 04:34 Blood Pressure Position Sitting 12/12/18 23:27 Pulse Oximetry 98 12/13/18 15:52 Oxygen Delivery Method Room Air 12/13/18 15:52 Oxygen Flow Rate 0 12/13/18 15:52 Pain Level 3 12/13/18 15:35 Intake & Output 12/12/18 12/13/18 12/13/18 23:59 11:59 23:59 Intake Total 2377.5 / 2655.0 277.5 / 2655.0 Output Total 550 / 1600 1050 / 1600 Balance 1827.5 / 1055.0 -772.5 / 1055.0 Weight 81.647 kg 81.647 kg Intake: IV 2377.5 / 2655.0 277.5 / 2655.0 Output: Urine 550 / 1600 1050 / 1600 Other: Urine Color Yellow Straw Urine Appearance Clear Clear Urine Odor Normal Voiding Methods Toilet Toilet Laboratory Results WBC 11.74 k/cumm (4.4-10.8) H 12/13/18 07:50 RBC 3.64 m/cumm (4.00-5.20) L 12/13/18 07:50 Hgb 11.4 g/dL (12.0-15.5) L 12/13/18 07:50 Hct 34.6 % (36.0-46.0) L 12/13/18 07:50 MCV 95.1 fL (80-95) H 12/13/18 07:50 MCH 31.3 pg (27.0-33.0) 12/13/18 07:50 MCHC 32.9 g/dL (32.0-36.0) 12/13/18 07:50 RDW 13.2 % (11.7-14.6) 12/13/18 07:50 Plt Count 273 x1000/uL (130-400) 12/13/18 07:50 MPV 10.1 fL (8.0-11.0) 12/13/18 07:50 Immature Gran % 0.5 12/13/18 07:50 Neutrophils % 79.0 12/13/18 07:50 Lymphocytes % 9.6 12/13/18 07:50 Monocytes % 9.8 12/13/18 07:50 Eosinophils % 0.9 12/13/18 07:50 Basophils % 0.2 12/13/18 07:50 Absolute Neutrophils 9.27 k/cumm (1.2-6.7) H 12/13/18 07:50 Absolute Lymphocytes 1.13 k/cumm (1.2-3.4) L 12/13/18 07:50 Absolute Monocytes 1.15 k/cumm (0.11-0.7) H 12/13/18 07:50 Absolute Eosinophils 0.11 k/cumm (0.0-0.7) 12/13/18 07:50 Absolute Basophils 0.02 k/cumm (0.0-0.2) 12/13/18 07:50 ESR 62 MM/HR (0-20) H 12/13/18 07:50 Sodium 138 mmol/L (136-145) 12/13/18 07:50 Potassium 3.7 mmol/L (3.5-5.1) 12/13/18 07:50 Chloride 102 mmol/L (98-107) 12/13/18 07:50 Carbon Dioxide 25.8 mmol/L (21.0-32.0) 12/13/18 07:50 Anion Gap 10.2 mmol/L (3-11) 12/13/18 07:50 BUN 6 mg/dL (7-18) L 12/13/18 07:50 Creatinine 0.80 mg/dL (0.55-1.02) 12/13/18 07:50 Estimated GFR/1.73 m2 >= 60.00 (mL/min/1.73m2) 12/13/18 07:50 Glucose 168 mg/dL (70-100) H D 12/13/18 07:50 Hemoglobin A1c 7.5 % (4.5-6.2) H 12/13/18 07:50 Calcium 8.8 mg/dL (8.5-10.1) 12/13/18 07:50 Magnesium 2.0 mg/dL (1.8-2.4) 12/12/18 23:36 Total Bilirubin 2.4 mg/dL (0.2-1.0) H 12/13/18 07:50 Conjugated Bilirubin 1.55 mg/dL (0.00-0.20) H 12/13/18 07:50 GGT 821 U/L (5-55) H 12/13/18 07:50 AST 244 U/L (15-37) H 12/13/18 07:50 ALT 304 U/L (12-78) H 12/13/18 07:50 Alkaline Phosphatase 438 U/L (46-116) H 12/13/18 07:50 Troponin I < 0.02 ng/mL (0.00-0.06) 12/13/18 03:30 C-Reactive Protein 2.28 mg/dL (0.0-0.3) H 12/13/18 07:50 Total Protein 7.3 g/dL (6.4-8.2) 12/13/18 07:50 Albumin 3.4 g/dL (3.4-5.0) 12/13/18 07:50 Lipase 263 U/L (73-393) 12/12/18 23:36 Procalcitonin 0.2 ng/mL 12/13/18 03:30 Urine Color Yellow (Yellow) 12/13/18 00:20 Urine Clarity Clear 12/13/18 00:20 Urine pH 6.5 (5-8) 12/13/18 00:20 Ur Specific [place] 1.010 (1.005-1.025) 12/13/18 00:20 Urine Protein Negative mg/dL (Negative) 12/13/18 00:20 Urine Ketones Negative mg/dL (Negative) 12/13/18 00:20 Urine Blood Negative (Negative) 12/13/18 00:20 Urine Nitrite Negative (Negative) 12/13/18 00:20 Urine Bilirubin Negative (Negative) 12/13/18 00:20 Urine Urobilinogen 0.2 EU/dL (Up TO 0.2) 12/13/18 00:20 Ur Leukocyte Esterase Negative (Negative) 12/13/18 00:20 Urine Glucose Negative mg/dL (Negative) 12/13/18 00:20 Urine Opiates Screen Negative (Negative) 12/13/18 00:20 Urine Methadone Screen Negative (Negative) 12/13/18 00:20 Ur Barbiturates Screen Negative (Negative) 12/13/18 00:20 Ur Tricyclics Screen Negative (Negative) 12/13/18 00:20 Ur Amphetamines Screen Negative (Negative) 12/13/18 00:20 U Benzodiazepines Scrn Negative (Negative) 12/13/18 00:20 Urine Cocaine Screen Negative (Negative) 12/13/18 00:20 Ur THC Screen Positive (Negative) 12/13/18 00:20
[2018-12-13] MEDS: Acetaminophen 650 MG SUPP PR (20:17)
[2018-12-14] VITALS (9 sets, daily range): BP systolic 100–136; BP diastolic 61–84; PULSE 60–74; RESP 16–18; TEMP 36.5–37.2; O2SAT 96–99
[2018-12-14] MEDS: Ondansetron 4 MG/2 ML VIAL IVP ×2 (04:48→23:14)
[2018-12-14] MEDS: metroNIDAZOLE 500 MG/100 ML BAG 100 MG IVPB ×4 (05:13→23:17)
[2018-12-14 06:59] LABS: Abs Immature Grans 0.03 k/cumm (0.0-0.09); Absolute Basophil Count 0.01 k/cumm (0.0-0.2); Absolute Eosinophil Count 0.21 k/cumm (0.0-0.7); Absolute Lymphocyte Count 1.44 k/cumm (1.2-3.4); Absolute Monocyte Count 0.63 k/cumm (0.11-0.7); Basophils % 0.1; Eosinophils % 3.1; HCT 31.9 % (36.0-46.0); HGB 10.3 g/dL (12.0-15.5); Immature Grans % 0.4; Lymphocytes % 21.2; Mean Corp. HGB Concentration 32.3 g/dL (32.0-36.0); Mean Corpuscular Hemoglobin 31.1 pg (27.0-33.0); Mean Corpuscular Volume 96.4 fL (80-95); Mean Platelet Volume 10.1 fL (8.0-11.0); Monocytes % 9.3; Neutrophils % 65.9; Platelet Count 219 x1000/uL (130-400); RBC 3.31 m/cumm (4.00-5.20); RBC Distribution Width 13.2 % (11.7-14.6); White Blood Cell Count 6.78 k/cumm (4.4-10.8)
[2018-12-14] MEDS: Lactated Ringers 1,000 ML 150 ML IV ×2 (07:00→16:01)
[2018-12-14 07:10] LABS: Absolute Neutrophil Count 4.47 k/cumm (1.2-6.7)
[2018-12-14 07:16] LABS: Anion Gap 8.9 mmol/L (3-11); BUN 6 mg/dL (7-18); Bilirubin, Direct 0.33 mg/dL (0.00-0.20); C-Reactive Protein 4.73 mg/dL (0.0-0.3); CO2 26.1 mmol/L (21.0-32.0); CREATININE 0.69 mg/dL (0.55-1.02); Calcium 8.2 mg/dL (8.5-10.1); Chloride 105 mmol/L (98-107); Glucose 132 mg/dL (70-100); Magnesium 1.7 mg/dL (1.8-2.4); Potassium 3.4 mmol/L (3.5-5.1); Sodium 140 mmol/L (136-145)
[2018-12-14 07:23] LABS: ALT 178 U/L (12-78); AST 86 U/L (15-37); Albumin 2.8 g/dL (3.4-5.0); Alkaline Phosphatase 324 U/L (46-116); Bilirubin, Direct 0.31 mg/dL (0.00-0.20); Bilirubin, Total 0.8 mg/dL (0.2-1.0); Total Protein 6.3 g/dL (6.4-8.2)
[2018-12-14 07:31] LABS: GGT 622 U/L (5-55)
[2018-12-14] MEDS: Clopidogrel 75 MG TAB PO (08:07)
[2018-12-14] MEDS: Lisinopril 5 MG TAB 2.5 MG PO (08:07)
[2018-12-14] MEDS: Aspirin E.C. 81 MG TABEC PO (08:08)
[2018-12-14] MEDS: Metoprolol CR 25 MG TABCR PO (08:08)
[2018-12-14] MEDS: FAMOTIDINE 20 MG/50 ML BAG 200 MG IVPB ×2 (08:08→19:52)
[2018-12-14] MEDS: Acetaminophen 650 MG SUPP PR (08:14)
--- NOTE | 2018-12-14 10:26 | PGE_ITS ---
Date of Service Date of service: 12/14/18 Time of Service: 10:05 Assessment and Plan (1) Choledocholithiasis with obstruction: Current visit: Yes Status: Acute Abdominal pain and LFT abnormalities all c/w biliary obstruction secondary to recurrent choledocholithiasis seen on MRCP. Labs actually look better this morning. She is s/p cholecystectomy after initial episode years ago. Continue with clear liquids, cipro and metronidazole IV, supportive care over the weekend, plan is down[place]back [place] [facility] [place]. (2) Blood glucose elevated: Current visit: Yes Status: Acute A1c 7.5% c/w type 2 DM, with fasting glocose >126 also c/w type 2 DM diagnosis but on IV fluids. I will discuss dietary approach with patient and make plans to follow up as outpatient for additional testing and possible treatment. For now, just monitor blood sugars with bolus insulin prn (3) History of coronary atherosclerosis: Current visit: No Status: Acute No symptoms, continue her plavix and ASA and statins along with metoprolol and lisinopril in light of her KRISTAL place in April 2018. [facility] aware she is on DAPT and agrees with continuation. (4) Hypokalemia: Current visit: Yes Status: Acute will supplement Mg and K+ (5) DVT prophylaxis: Current visit: Yes Status: Acute on LMWH Subjective Patient reports: no new complaints, tolerating liquids well, voiding w/o difficulty and no bowel movement; denies vomiting and fever Interval history since last seen: 24hr: no events S: Feels okay this morning. Epigastric pain continues, but better with pain me ds. Nausea also better with meds, comfortable now. Minimal hunger, but she would like to try some jello. [place] more nauseous with broth last night, but able to drink water and james mel. no chest pain, no bleeding or black stools Exam Narrative Exam Narrative: HEENT: No icterus, MMM, no neck masses Lungs: CTAB, normal effort CV: RRR no M/G/R ABD: hypoactive BS, soft, diffusely tender ext: no cyanosis, no edema, not tender Skin: no rashes or bruising Objective Objective Clinical Data: Abnormal lab results 12/14/18 12/14/18 12/14/18 Range/Units 06:24 06:24 06:24 RBC 3.31 L (4.00-5.20) m/cumm Hgb 10.3 L (12.0-15.5) g/dL Hct 31.9 L (36.0-46.0) % MCV 96.4 H (80-95) fL Potassium 3.4 L (3.5-5.1) mmol/L BUN 6 L (7-18) mg/dL Glucose 132 H (70-100) mg/dL Calcium 8.2 L (8.5-10.1) mg/dL Magnesium 1.7 L (1.8-2.4) mg/dL Conjugated Bilirubin 0.33 H 0.31 H (0.00-0.20) mg/dL GGT 622 H (5-55) U/L AST 86 H (15-37) U/L ALT 178 H (12-78) U/L Alkaline Phosphatase 324 H (46-116) U/L C-Reactive Protein 4.73 H (0.0-0.3) mg/dL Total Protein 6.3 L (6.4-8.2) g/dL Albumin 2.8 L (3.4-5.0) g/dL Vital Signs Temperature 36.6 C 12/14/18 07:15 Temperature Source Tympanic 12/14/18 07:15 Pulse 71 12/14/18 07:15 Pulse Rhythm Regular 12/13/18 19:45 Respiratory Rate 18 12/14/18 07:15 Respiratory Effort Non-Labored 12/13/18 19:45 Respiratory Depth Normal 12/13/18 19:45 Respiratory Pattern Normal 12/13/18 19:45 Blood Pressure 124/82 12/14/18 07:15 Blood Pressure Mean 87 12/13/18 04:34 Blood Pressure Position Sitting 12/12/18 23:27 Pulse Oximetry 98 12/14/18 07:15 Oxygen Delivery Method Room Air 12/14/18 07:15 Oxygen Flow Rate 0 12/14/18 07:15 Pain Level 6 12/14/18 08:14 Intake & Output 12/13/18 12/13/18 12/14/18 11:59 23:59 11:59 Intake Total 2377.5 / 3035.0 657.5 / 3035.0 1220 / 1220 Output Total 550 / 1600 1050 / 1600 350 / 350 Balance 1827.5 / 1435.0 -392.5 / 1435.0 870 / 870 Weight 81.647 kg 79.8 kg Intake: IV 2377.5 / 3035.0 657.5 / 3035.0 1220 / 1220 Output: Urine 550 / 1600 1050 / 1600 350 / 350 Other: Urine Color Yellow Straw Pale Yellow Urine Appearance Clear Clear Clear Urine Odor Normal None Comment pt noticed voiding independently in the tiolet Voiding Methods Toilet Toilet Toilet Laboratory Results WBC 6.78 k/cumm (4.4-10.8) D 12/14/18 06:24 RBC 3.31 m/cumm (4.00-5.20) L 12/14/18 06:24 Hgb 10.3 g/dL (12.0-15.5) L 12/14/18 06:24 Hct 31.9 % (36.0-46.0) L 12/14/18 06:24 MCV 96.4 fL (80-95) H 12/14/18 06:24 MCH 31.1 pg (27.0-33.0) 12/14/18 06:24 MCHC 32.3 g/dL (32.0-36.0) 12/14/18 06:24 RDW 13.2 % (11.7-14.6) 12/14/18 06:24 Plt Count 219 x1000/uL (130-400) 12/14/18 06:24 MPV 10.1 fL (8.0-11.0) 12/14/18 06:24 Immature Gran % 0.4 12/14/18 06:24 Neutrophils % 65.9 12/14/18 06:24 Lymphocytes % 21.2 12/14/18 06:24 Monocytes % 9.3 12/14/18 06:24 Eosinophils % 3.1 12/14/18 06:24 Basophils % 0.1 12/14/18 06:24 Absolute Neutrophils 4.47 k/cumm (1.2-6.7) 12/14/18 06:24 Absolute Lymphocytes 1.44 k/cumm (1.2-3.4) 12/14/18 06:24 Absolute Monocytes 0.63 k/cumm (0.11-0.7) 12/14/18 06:24 Absolute Eosinophils 0.21 k/cumm (0.0-0.7) 12/14/18 06:24 Absolute Basophils 0.01 k/cumm (0.0-0.2) 12/14/18 06:24 ESR 62 MM/HR (0-20) H 12/13/18 07:50 Sodium 140 mmol/L (136-145) 12/14/18 06:24 Potassium 3.4 mmol/L (3.5-5.1) L 12/14/18 06:24 Chloride 105 mmol/L (98-107) 12/14/18 06:24 Carbon Dioxide 26.1 mmol/L (21.0-32.0) 12/14/18 06:24 Anion Gap 8.9 mmol/L (3-11) 12/14/18 06:24 BUN 6 mg/dL (7-18) L 12/14/18 06:24 Creatinine 0.69 mg/dL (0.55-1.02) 12/14/18 06:24 Estimated GFR/1.73 m2 >= 60.00 (mL/min/1.73m2) 12/14/18 06:24 Glucose 132 mg/dL (70-100) H 12/14/18 06:24 Hemoglobin A1c 7.5 % (4.5-6.2) H 12/13/18 07:50 Calcium 8.2 mg/dL (8.5-10.1) L 12/14/18 06:24 Magnesium 1.7 mg/dL (1.8-2.4) L 12/14/18 06:24 Total Bilirubin 0.8 mg/dL (0.2-1.0) 12/14/18 06:24 Conjugated Bilirubin 0.31 mg/dL (0.00-0.20) H 12/14/18 06:24 GGT 622 U/L (5-55) H 12/14/18 06:24 AST 86 U/L (15-37) H 12/14/18 06:24 ALT 178 U/L (12-78) H 12/14/18 06:24 Alkaline Phosphatase 324 U/L (46-116) H 12/14/18 06:24 Troponin I < 0.02 ng/mL (0.00-0.06) 12/13/18 03:30 C-Reactive Protein 4.73 mg/dL (0.0-0.3) H 12/14/18 06:24 Total Protein 6.3 g/dL (6.4-8.2) L 12/14/18 06:24 Albumin 2.8 g/dL (3.4-5.0) L 12/14/18 06:24 Lipase 263 U/L (73-393) 12/12/18 23:36 Procalcitonin 0.2 ng/mL 12/13/18 03:30 Urine Color Yellow (Yellow) 12/13/18 00:20 Urine Clarity Clear 12/13/18 00:20 Urine pH 6.5 (5-8) 12/13/18 00:20 Ur Specific [place] 1.010 (1.005-1.025) 12/13/18 00:20 Urine Protein Negative mg/dL (Negative) 12/13/18 00:20 Urine Ketones Negative mg/dL (Negative) 12/13/18 00:20 Urine Blood Negative (Negative) 12/13/18 00:20 Urine Nitrite Negative (Negative) 12/13/18 00:20 Urine Bilirubin Negative (Negative) 12/13/18 00:20 Urine Urobilinogen 0.2 EU/dL (Up TO 0.2) 12/13/18 00:20 Ur Leukocyte Esterase Negative (Negative) 12/13/18 00:20 Urine Glucose Negative mg/dL (Negative) 12/13/18 00:20 Urine Opiates Screen Negative (Negative) 12/13/18 00:20 Urine Methadone Screen Negative (Negative) 12/13/18 00:20 Ur Barbiturates Screen Negative (Negative) 12/13/18 00:20 Ur Tricyclics Screen Negative (Negative) 12/13/18 00:20 Ur Amphetamines Screen Negative (Negative) 12/13/18 00:20 U Benzodiazepines Scrn Negative (Negative) 12/13/18 00:20 Urine Cocaine Screen Negative (Negative) 12/13/18 00:20 Ur THC Screen Positive (Negative) 12/13/18 00:20
[2018-12-14] MEDS: CIPROFLOXACIN 200 MG/100 ML BAG 100 MG IVPB ×2 (10:59→22:24)
--- NOTE | 2018-12-14 13:36 | PDOC.CMPRO ---
Care Management Progress Note S/O: Lucina was resting in bed visiting with her . States she is just waiting to go to [facility] to have further testing. A: 48 yo female admitted with abdominal pain and elevated LFTs P: Scheduled to go to [facility] Sunday and return following the scheduled ERCP. Anticipate she will return home with her and no servoces will be needed.
--- NOTE | 2018-12-14 14:10 | CMPROGNOTE_ITS ---
Care Management Progress Note S/O: Lucina was resting in bed visiting with her . States she is just waiting to go [place] [facility] [place]. A: 48 yo female admitted with abdominal pain and elevated LFTs P: Scheduled to go [place] [facility] [place] return following the scheduled ERCP. Anticipate she will return home with her and no servoces will be needed.
[2018-12-14] MEDS: Acetaminophen 325 MG TAB 650 MG PO (14:14)
[2018-12-14] MEDS: Atorvastatin 40 MG TAB PO (19:52)
[2018-12-15] MEDS: Lactated Ringers 1,000 ML 150 ML IV ×2 (01:55→09:18)
[2018-12-15 04:08] VITALS: BP 138/77; PULSE 65; RESP 17; TEMP 36.6; O2SAT 98
[2018-12-15] MEDS: metroNIDAZOLE 500 MG/100 ML BAG 100 MG IVPB ×4 (05:47→23:42)
[2018-12-15 07:36] VITALS: BP 150/80; PULSE 88; RESP 17; TEMP 37.1; O2SAT 99
[2018-12-15] MEDS: Lisinopril 5 MG TAB 2.5 MG PO (07:42)
[2018-12-15] MEDS: Ondansetron 4 MG/2 ML VIAL IVP ×3 (07:42→20:43)
[2018-12-15] MEDS: Normal Saline Flush 10 ML SYR IVP ×5 (07:42→22:54)
[2018-12-15] MEDS: Aspirin E.C. 81 MG TABEC PO (07:43)
[2018-12-15] MEDS: Clopidogrel 75 MG TAB PO (07:43)
[2018-12-15] MEDS: Metoprolol CR 25 MG TABCR PO (07:43)
[2018-12-15] MEDS: FAMOTIDINE 20 MG/50 ML BAG 200 MG IVPB ×2 (08:36→19:27)
[2018-12-15 11:55] VITALS: BP 124/73; PULSE 69; RESP 16; TEMP 36.5; O2SAT 97
[2018-12-15] MEDS: CIPROFLOXACIN 200 MG/100 ML BAG 100 MG IVPB ×2 (12:02→22:09)
--- NOTE | 2018-12-15 12:02 | W.PM.PROGNOT ---
Date of Service Date of service: 12/15/18 Time of Service: 12:02 Assessment and Plan (1) Choledocholithiasis with obstruction: Current visit: Yes Status: Acute Abdominal pain and LFT abnormalities all c/w biliary obstruction secondary to recurrent choledocholithiasis seen on MRCP. Labs actually looked better yesterday, not repeated today but clinically stable, check again in morning before procedure. She is s/p cholecystectomy after initial episode years ago. Continue with clear liquids, cipro and metronidazole IV, supportive care over the weekend, plan is still down/back to [facility] [place] for ERCP. (2) Blood glucose elevated: Current visit: Yes Status: Acute A1c 7.5% c/w type 2 DM. No obvious symptoms, urinating a lot but on IV fluids. I discussed the likely diagnosis and dietary approach. Plan to follow up as outpatient for additional testing and possible treatment. For now, cointinue monitor blood sugars with bolus insulin prn (3) History of coronary atherosclerosis: Current visit: No Status: Acute No symptoms, continue her plavix and ASA and statins along with metoprolol and lisinopril in light of her KRISTAL place in April 2018. [facility] aware she is on DAPT and agrees with continuation. No change (4) Hypokalemia: Current visit: Yes Status: Acute Recheck with AM labs and supplument prn (5) DVT prophylaxis: Current visit: Yes Status: Acute on LMWH Subjective Patient reports: no new complaints, still having pain, voiding w/o difficulty, flatus, nausea and afebrile; denies tolerating liquids well, tolerating a regular diet, bowel movement, vomiting and shortness of breath Interval history since last seen: events: none Patient feels okay now. Didn't tolerate clear diet, causes increased pain and nausea. Medications help both, not bad now. Exam Narrative Exam Narrative: HEENT: No icterus, MMM Lungs: CTAB, normal effort CV: RRR no M/G/R ABD: active BS, soft, mild to moderate tendeness with deep palpation RUQ, no significant masses ext: no cyanosis, no edema, not tender Skin: no rashes or bruising Objective Objective Clinical Data: Vital Signs Temperature 37.1 C 12/15/18 07:36 Temperature Source Tympanic 12/15/18 07:36 Pulse 88 12/15/18 07:36 Pulse Rhythm Regular 12/15/18 07:36 Respiratory Rate 17 12/15/18 07:36 Respiratory Effort 12/15/18 07:36 Respiratory Depth Normal 12/15/18 07:36 Respiratory Pattern Normal 12/15/18 07:36 Blood Pressure 150/80 H 12/15/18 07:36 Blood Pressure Mean 87 12/13/18 04:34 Blood Pressure Position Sitting 12/12/18 23:27 Pulse Oximetry 99 12/15/18 07:36 Oxygen Delivery Method Room Air 12/15/18 07:36 Oxygen Flow Rate 0 12/15/18 07:36 Pain Level 4 12/15/18 12:01 Intake & Output 12/14/18 12/15/18 12/15/18 23:59 11:59 23:59 Intake Total 2252.5 / 3472.5 1220 / 1220 Balance 2252.5 / 3122.5 1220 / 1220 Intake: IV 2252.5 / 3472.5 1220 / 1220 Other: Urine Color Yellow Urine Appearance Clear Clear Urine Odor Normal Emesis Description Bile Voiding Methods Toilet Laboratory Results WBC 6.78 k/cumm (4.4-10.8) D 12/14/18 06:24 RBC 3.31 m/cumm (4.00-5.20) L 12/14/18 06:24 Hgb 10.3 g/dL (12.0-15.5) L 12/14/18 06:24 Hct 31.9 % (36.0-46.0) L 12/14/18 06:24 MCV 96.4 fL (80-95) H 12/14/18 06:24 MCH 31.1 pg (27.0-33.0) 12/14/18 06:24 MCHC 32.3 g/dL (32.0-36.0) 12/14/18 06:24 RDW 13.2 % (11.7-14.6) 12/14/18 06:24 Plt Count 219 x1000/uL (130-400) 12/14/18 06:24 MPV 10.1 fL (8.0-11.0) 12/14/18 06:24 Immature Gran % 0.4 12/14/18 06:24 Neutrophils % 65.9 12/14/18 06:24 Lymphocytes % 21.2 12/14/18 06:24 Monocytes % 9.3 12/14/18 06:24 Eosinophils % 3.1 12/14/18 06:24 Basophils % 0.1 12/14/18 06:24 Absolute Neutrophils 4.47 k/cumm (1.2-6.7) 12/14/18 06:24 Absolute Lymphocytes 1.44 k/cumm (1.2-3.4) 12/14/18 06:24 Absolute Monocytes 0.63 k/cumm (0.11-0.7) 12/14/18 06:24 Absolute Eosinophils 0.21 k/cumm (0.0-0.7) 12/14/18 06:24 Absolute Basophils 0.01 k/cumm (0.0-0.2) 12/14/18 06:24 ESR 62 MM/HR (0-20) H 12/13/18 07:50 Sodium 140 mmol/L (136-145) 12/14/18 06:24 Potassium 3.4 mmol/L (3.5-5.1) L 12/14/18 06:24 Chloride 105 mmol/L (98-107) 12/14/18 06:24 Carbon Dioxide 26.1 mmol/L (21.0-32.0) 12/14/18 06:24 Anion Gap 8.9 mmol/L (3-11) 12/14/18 06:24 BUN 6 mg/dL (7-18) L 12/14/18 06:24 Creatinine 0.69 mg/dL (0.55-1.02) 12/14/18 06:24 Estimated GFR/1.73 m2 >= 60.00 (mL/min/1.73m2) 12/14/18 06:24 Glucose 132 mg/dL (70-100) H 12/14/18 06:24 Hemoglobin A1c 7.5 % (4.5-6.2) H 12/13/18 07:50 Calcium 8.2 mg/dL (8.5-10.1) L 12/14/18 06:24 Magnesium 1.7 mg/dL (1.8-2.4) L 12/14/18 06:24 Total Bilirubin 0.8 mg/dL (0.2-1.0) 12/14/18 06:24 Conjugated Bilirubin 0.31 mg/dL (0.00-0.20) H 12/14/18 06:24 GGT 622 U/L (5-55) H 12/14/18 06:24 AST 86 U/L (15-37) H 12/14/18 06:24 ALT 178 U/L (12-78) H 12/14/18 06:24 Alkaline Phosphatase 324 U/L (46-116) H 12/14/18 06:24 Troponin I < 0.02 ng/mL (0.00-0.06) 12/13/18 03:30 C-Reactive Protein 4.73 mg/dL (0.0-0.3) H 12/14/18 06:24 Total Protein 6.3 g/dL (6.4-8.2) L 12/14/18 06:24 Albumin 2.8 g/dL (3.4-5.0) L 12/14/18 06:24 Lipase 263 U/L (73-393) 12/12/18 23:36 Procalcitonin 0.2 ng/mL 12/13/18 03:30 Urine Color Yellow (Yellow) 12/13/18 00:20 Urine Clarity Clear 12/13/18 00:20 Urine pH 6.5 (5-8) 12/13/18 00:20 Ur Specific [place] 1.010 (1.005-1.025) 12/13/18 00:20 Urine Protein Negative mg/dL (Negative) 12/13/18 00:20 Urine Ketones Negative mg/dL (Negative) 12/13/18 00:20 Urine Blood Negative (Negative) 12/13/18 00:20 Urine Nitrite Negative (Negative) 12/13/18 00:20 Urine Bilirubin Negative (Negative) 12/13/18 00:20 Urine Urobilinogen 0.2 EU/dL (Up TO 0.2) 12/13/18 00:20 Ur Leukocyte Esterase Negative (Negative) 12/13/18 00:20 Urine Glucose Negative mg/dL (Negative) 12/13/18 00:20 Urine Opiates Screen Negative (Negative) 12/13/18 00:20 Urine Methadone Screen Negative (Negative) 12/13/18 00:20 Ur Barbiturates Screen Negative (Negative) 12/13/18 00:20 Ur Tricyclics Screen Negative (Negative) 12/13/18 00:20 Ur Amphetamines Screen Negative (Negative) 12/13/18 00:20 U Benzodiazepines Scrn Negative (Negative) 12/13/18 00:20 Urine Cocaine Screen Negative (Negative) 12/13/18 00:20 Ur THC Screen Positive (Negative) 12/13/18 00:20
--- NOTE | 2018-12-15 12:14 | PDOC.CMPRO ---
Care Management Progress Note S/O: Lucina was resting in bed visiting with her . States she is just waiting to go [place] [facility] [place]. A: 48 yo female admitted with abdominal pain and elevated LFTs P: Scheduled to go to [facility] [place] and return following the scheduled ERCP. Anticipate she will return home with her and no services will be needed.
--- NOTE | 2018-12-15 12:17 | CMPROGNOTE_ITS ---
Care Management Progress Note S/O: Lucina was resting in bed visiting with her . States she is just waiting to go to [facility] to have further testing. A: 48 yo female admitted with abdominal pain and elevated LFTs P: Scheduled to go to [facility] Sunday and return following the scheduled ERCP. Anticipate she will return home with her and no services will be needed.
[2018-12-15 15:15] VITALS: BP 149/78; PULSE 64; RESP 18; TEMP 37.2; O2SAT 98
[2018-12-15 19:24] VITALS: BP 138/76; PULSE 73; RESP 18; TEMP 37.2; O2SAT 99
[2018-12-15] MEDS: Atorvastatin 40 MG TAB PO (19:26)
[2018-12-15] MEDS: Lactated Ringers 1,000 ML 120 ML IV (19:57)
[2018-12-15 23:30] VITALS: BP 133/76; PULSE 70; RESP 14; TEMP 37.2; O2SAT 98
[2018-12-16 04:00] VITALS: BP 128/71; PULSE 69; RESP 16; TEMP 36.9; O2SAT 96
[2018-12-16] MEDS: metroNIDAZOLE 500 MG/100 ML BAG 100 MG IVPB ×3 (06:04→23:10)
[2018-12-16] MEDS: Lactated Ringers 1,000 ML 120 ML IV (06:04)
[2018-12-16] MEDS: Normal Saline Flush 10 ML SYR IVP ×4 (06:30→23:09)
[2018-12-16] MEDS: Ondansetron 4 MG/2 ML VIAL IVP ×2 (06:30→23:10)
[2018-12-16 06:53] LABS: Abs Immature Grans 0.03 k/cumm (0.0-0.09); Absolute Basophil Count 0.02 k/cumm (0.0-0.2); Absolute Lymphocyte Count 1.62 k/cumm (1.2-3.4); Absolute Monocyte Count 0.55 k/cumm (0.11-0.7); Absolute Neutrophil Count 5.87 k/cumm (1.2-6.7); Basophils % 0.2; Eosinophils % 3.6; HCT 33.5 % (36.0-46.0); HGB 10.9 g/dL (12.0-15.5); Immature Grans % 0.4; Lymphocytes % 19.3; Mean Corp. HGB Concentration 32.5 g/dL (32.0-36.0); Mean Corpuscular Hemoglobin 31.4 pg (27.0-33.0); Mean Corpuscular Volume 96.5 fL (80-95); Mean Platelet Volume 10.1 fL (8.0-11.0); Monocytes % 6.6; Neutrophils % 69.9; Platelet Count 247 x1000/uL (130-400); RBC 3.47 m/cumm (4.00-5.20); White Blood Cell Count 8.39 k/cumm (4.4-10.8)
[2018-12-16 07:05] LABS: ALT 94 U/L (12-78); AST 32 U/L (15-37); Albumin 2.9 g/dL (3.4-5.0); Alkaline Phosphatase 246 U/L (46-116); Anion Gap 9.7 mmol/L (3-11); BUN 5 mg/dL (7-18); Bilirubin, Total 0.5 mg/dL (0.2-1.0); CO2 26.3 mmol/L (21.0-32.0); CREATININE 0.76 mg/dL (0.55-1.02); Chloride 103 mmol/L (98-107); Glucose 95 mg/dL (70-100); Potassium 3.5 mmol/L (3.5-5.1); Sodium 139 mmol/L (136-145); Total Protein 6.6 g/dL (6.4-8.2)
[2018-12-16 07:18] VITALS: BP 140/74; PULSE 71; RESP 16; TEMP 36.9; O2SAT 96
[2018-12-16] MEDS: FAMOTIDINE 20 MG/50 ML BAG 200 MG IVPB ×2 (07:46→20:10)
[2018-12-16] MEDS: Clopidogrel 75 MG TAB PO (07:47)
[2018-12-16] MEDS: Metoprolol CR 25 MG TABCR PO (07:47)
[2018-12-16] MEDS: Aspirin E.C. 81 MG TABEC PO (07:48)
[2018-12-16] MEDS: Lisinopril 5 MG TAB 2.5 MG PO (07:48)
--- NOTE | 2018-12-16 09:39 | W.PM.PROGNOT ---
Date of Service Date of service: 12/16/18 Time of Service: 09:39 Assessment and Plan (1) Choledocholithiasis with obstruction: Current visit: Yes Status: Acute Abdominal pain and LFT abnormalities all c/w biliary obstruction secondary to recurrent choledocholithiasis seen on MRCP. She is s/p cholecystectomy after initial episode years ago. Labs continue to look better today but have not normalized and her symptoms continue. Continue with clear liquids, cipro and metronidazole IV, supportive care over the weekend, plan is still down/back to [facility] today for ERCP. I discussed this with Dr. Williamson from [facility] and plan is for early this afternoon, will call and confirm. (2) Blood glucose elevated: Current visit: Yes Status: Acute A1c 7.5% c/w a new diagnosis of type 2 DM. No obvious symptoms, urinating a lot but on IV fluids. We discussed the likely diagnosis and dietary approach. Plan to follow up as outpatient for additional testing and possible treatment. While inpatient cointinue monitor blood sugars with bolus insulin prn (3) History of coronary atherosclerosis: Current visit: No Status: Acute No symptoms, continue her plavix and ASA and statins along with metoprolol and lisinopril in light of her KRISTAL place in April 2018. [facility] aware she is on DAPT and agrees with continuation. No change (4) Hypokalemia: Current visit: Yes Status: Acute improved today. Continue LR for fluids while NPO. (5) DVT prophylaxis: Current visit: Yes Status: Acute on LMWH Subjective Patient reports: still having pain, voiding w/o difficulty and nausea; denies tolerating liquids well, diarrhea, vomiting, shortness of breath and fever Interval history since last seen: events: none S: Lucina states she still feels yucky in her abdomen. Constant pain, though medication helps. Nausea is also constant, zofran usually works but not every time. Still only eating ice chips, does not feel she can eat. no jaundice or other skin changes noted. No chest pain or palpitations. Urinating the same, every 2 hours or so, no pain. Exam Narrative Exam Narrative: HEENT: No icterus, MMM Lungs: CTAB, normal effort CV: RRR no M/G/R ABD: hypoactive BS, soft, mild to moderate tendeness with palpation RUQ, no significant masses ext: no cyanosis, no edema, not tender Skin: no rashes or bruising Objective Objective Clinical Data: Abnormal lab results 12/16/18 12/16/18 Range/Units 06:18 06:18 RBC 3.47 L (4.00-5.20) m/cumm Hgb 10.9 L (12.0-15.5) g/dL Hct 33.5 L (36.0-46.0) % MCV 96.5 H (80-95) fL BUN 5 L (7-18) mg/dL Calcium 8.0 L (8.5-10.1) mg/dL ALT 94 H (12-78) U/L Alkaline Phosphatase 246 H (46-116) U/L Albumin 2.9 L (3.4-5.0) g/dL Vital Signs Temperature 36.9 C 12/16/18 07:18 Temperature Source Tympanic 12/16/18 07:18 Pulse 71 12/16/18 07:18 Pulse Rhythm Regular 12/15/18 19:30 Respiratory Rate 16 12/16/18 07:18 Respiratory Effort Non-Labored 12/15/18 19:30 Respiratory Depth Normal 12/15/18 19:30 Respiratory Pattern Normal 12/15/18 19:30 Blood Pressure 140/74 12/16/18 07:18 Blood Pressure Mean 87 12/13/18 04:34 Blood Pressure Position Sitting 12/12/18 23:27 Pulse Oximetry 96 12/16/18 07:18 Oxygen Delivery Method Room Air 12/16/18 07:18 Oxygen Flow Rate 0 12/16/18 07:18 Pain Level 7 12/16/18 08:52 Intake & Output 12/15/18 12/15/18 12/16/18 11:59 23:59 11:59 Intake Total 1220 / 2560 1340 / 2560 894 / 894 Output Total 650 / 650 Balance 1220 / 1910 690 / 1910 894 / 894 Weight 77.8 kg Intake: IV 1220 / 2560 1340 / 2560 894 / 894 Output: Urine 650 / 650 Other: Urine Color Yellow Yellow Urine Appearance Clear Clear Urine Odor Normal None Emesis Description Bile Voiding Methods Toilet Toilet Laboratory Results WBC 8.39 k/cumm (4.4-10.8) 12/16/18 06:18 RBC 3.47 m/cumm (4.00-5.20) L 12/16/18 06:18 Hgb 10.9 g/dL (12.0-15.5) L 12/16/18 06:18 Hct 33.5 % (36.0-46.0) L 12/16/18 06:18 MCV 96.5 fL (80-95) H 12/16/18 06:18 MCH 31.4 pg (27.0-33.0) 12/16/18 06:18 MCHC 32.5 g/dL (32.0-36.0) 12/16/18 06:18 RDW 13.0 % (11.7-14.6) 12/16/18 06:18 Plt Count 247 x1000/uL (130-400) 12/16/18 06:18 MPV 10.1 fL (8.0-11.0) 12/16/18 06:18 Immature Gran % 0.4 12/16/18 06:18 Neutrophils % 69.9 12/16/18 06:18 Lymphocytes % 19.3 12/16/18 06:18 Monocytes % 6.6 12/16/18 06:18 Eosinophils % 3.6 12/16/18 06:18 Basophils % 0.2 12/16/18 06:18 Absolute Neutrophils 5.87 k/cumm (1.2-6.7) 12/16/18 06:18 Absolute Lymphocytes 1.62 k/cumm (1.2-3.4) 12/16/18 06:18 Absolute Monocytes 0.55 k/cumm (0.11-0.7) 12/16/18 06:18 Absolute Eosinophils 0.30 k/cumm (0.0-0.7) 12/16/18 06:18 Absolute Basophils 0.02 k/cumm (0.0-0.2) 12/16/18 06:18 ESR 62 MM/HR (0-20) H 12/13/18 07:50 Sodium 139 mmol/L (136-145) 12/16/18 06:18 Potassium 3.5 mmol/L (3.5-5.1) 12/16/18 06:18 Chloride 103 mmol/L (98-107) 12/16/18 06:18 Carbon Dioxide 26.3 mmol/L (21.0-32.0) 12/16/18 06:18 Anion Gap 9.7 mmol/L (3-11) 12/16/18 06:18 BUN 5 mg/dL (7-18) L 12/16/18 06:18 Creatinine 0.76 mg/dL (0.55-1.02) 12/16/18 06:18 Estimated GFR/1.73 m2 >= 60.00 (mL/min/1.73m2) 12/16/18 06:18 Glucose 95 mg/dL (70-100) 12/16/18 06:18 Hemoglobin A1c 7.5 % (4.5-6.2) H 12/13/18 07:50 Calcium 8.0 mg/dL (8.5-10.1) L 12/16/18 06:18 Magnesium 1.7 mg/dL (1.8-2.4) L 12/14/18 06:24 Total Bilirubin 0.5 mg/dL (0.2-1.0) 12/16/18 06:18 Conjugated Bilirubin 0.31 mg/dL (0.00-0.20) H 12/14/18 06:24 GGT 622 U/L (5-55) H 12/14/18 06:24 AST 32 U/L (15-37) 12/16/18 06:18 ALT 94 U/L (12-78) H 12/16/18 06:18 Alkaline Phosphatase 246 U/L (46-116) H 12/16/18 06:18 Troponin I < 0.02 ng/mL (0.00-0.06) 12/13/18 03:30 C-Reactive Protein 4.73 mg/dL (0.0-0.3) H 12/14/18 06:24 Total Protein 6.6 g/dL (6.4-8.2) 12/16/18 06:18 Albumin 2.9 g/dL (3.4-5.0) L 12/16/18 06:18 Lipase 263 U/L (73-393) 12/12/18 23:36 Procalcitonin 0.2 ng/mL 12/13/18 03:30 Urine Color Yellow (Yellow) 12/13/18 00:20 Urine Clarity Clear 06/07/19 00:20 Urine pH 6.5 (5-8) 12/13/18 00:20 Ur Specific [place] 1.010 (1.005-1.025) 12/13/18 00:20 Urine Protein Negative mg/dL (Negative) 12/13/18 00:20 Urine Ketones Negative mg/dL (Negative) 12/13/18 00:20 Urine Blood Negative (Negative) 12/13/18 00:20 Urine Nitrite Negative (Negative) 12/13/18 00:20 Urine Bilirubin Negative (Negative) 12/13/18 00:20 Urine Urobilinogen 0.2 EU/dL (Up TO 0.2) 12/13/18 00:20 Ur Leukocyte Esterase Negative (Negative) 12/13/18 00:20 Urine Glucose Negative mg/dL (Negative) 12/13/18 00:20 Urine Opiates Screen Negative (Negative) 12/13/18 00:20 Urine Methadone Screen Negative (Negative) 12/13/18 00:20 Ur Barbiturates Screen Negative (Negative) 12/13/18 00:20 Ur Tricyclics Screen Negative (Negative) 12/13/18 00:20 Ur Amphetamines Screen Negative (Negative) 12/13/18 00:20 U Benzodiazepines Scrn Negative (Negative) 12/13/18 00:20 Urine Cocaine Screen Negative (Negative) 12/13/18 00:20 Ur THC Screen Positive (Negative) 12/13/18 00:20
--- NOTE | 2018-12-16 09:45 | PGE_ITS ---
Date of Service Date of service: 12/16/18 Time of Service: 09:39 Assessment and Plan (1) Choledocholithiasis with obstruction: Current visit: Yes Status: Acute Abdominal pain and LFT abnormalities all c/w biliary obstruction secondary to recurrent choledocholithiasis seen on MRCP. She is s/p cholecystectomy after initial episode years ago. Labs continue to look better today but have not normalized and her symptoms continue. Continue with clear liquids, cipro and metronidazole IV, supportive care over the weekend, plan is still down/back to [facility] today for ERCP. I discussed this with Dr. Williamson from [facility] and plan is for early this afternoon, will call and confirm. (2) Blood glucose elevated: Current visit: Yes Status: Acute A1c 7.5% c/w a new diagnosis of type 2 DM. No obvious symptoms, urinating a lot but on IV fluids. We discussed the likely diagnosis and dietary approach. Plan to follow up as outpatient for additional testing and possible treatment. While inpatient cointinue monitor blood sugars with bolus insulin prn (3) History of coronary atherosclerosis: Current visit: No Status: Acute No symptoms, continue her plavix and ASA and statins along with metoprolol and lisinopril in light of her [facility] place in April 2018. [facility] aware she is on DAPT and agrees with continuation. No change (4) Hypokalemia: Current visit: Yes Status: Acute improved today. Continue LR for fluids while NPO. (5) DVT prophylaxis: Current visit: Yes Status: Acute on LMWH Subjective Patient reports: still having pain, voiding w/o difficulty and nausea; denies tolerating liquids well, diarrhea, vomiting, shortness of breath and fever Interval history since last seen: events: none S: Lucina states she still feels yucky in her abdomen. Constant pain, though medication helps. Nausea is also constant, zofran usually works but not every time. Still only eating ice chips, does not feel she can eat. no jaundice or other skin changes noted. No chest pain or palpitations. Urinating the same, every 2 hours or so, no pain. Exam Narrative Exam Narrative: HEENT: No icterus, MMM Lungs: CTAB, normal effort CV: RRR no M/G/R ABD: hypoactive BS, soft, mild to moderate tendeness with palpation RUQ, no significant masses ext: no cyanosis, no edema, not tender Skin: no rashes or bruising Objective Objective Clinical Data: Abnormal lab results 12/16/18 12/16/18 Range/Units 06:18 06:18 RBC 3.47 L (4.00-5.20) m/cumm Hgb 10.9 L (12.0-15.5) g/dL Hct 33.5 L (36.0-46.0) % MCV 96.5 H (80-95) fL BUN 5 L (7-18) mg/dL Calcium 8.0 L (8.5-10.1) mg/dL ALT 94 H (12-78) U/L Alkaline Phosphatase 246 H (46-116) U/L Albumin 2.9 L (3.4-5.0) g/dL Vital Signs Temperature 36.9 C 12/16/18 07:18 Temperature Source Tympanic 12/16/18 07:18 Pulse 71 12/16/18 07:18 Pulse Rhythm Regular 12/15/18 19:30 Respiratory Rate 16 12/16/18 07:18 Respiratory Effort Non-Labored 12/15/18 19:30 Respiratory Depth Normal 12/15/18 19:30 Respiratory Pattern Normal 12/15/18 19:30 Blood Pressure 140/74 12/16/18 07:18 Blood Pressure Mean 87 12/13/18 04:34 Blood Pressure Position Sitting 12/12/18 23:27 Pulse Oximetry 96 12/16/18 07:18 Oxygen Delivery Method Room Air 12/16/18 07:18 Oxygen Flow Rate 0 12/16/18 07:18 Pain Level 7 12/16/18 08:52 Intake & Output 12/15/18 12/15/18 12/16/18 11:59 23:59 11:59 Intake Total 1220 / 2560 1340 / 2560 894 / 894 Output Total 650 / 650 Balance 1220 / 1910 690 / 1910 894 / 894 Weight 77.8 kg Intake: IV 1220 / 2560 1340 / 2560 894 / 894 Output: Urine 650 / 650 Other: Urine Color Yellow Yellow Urine Appearance Clear Clear Urine Odor Normal None Emesis Description Bile Voiding Methods Toilet Toilet Laboratory Results WBC 8.39 k/cumm (4.4-10.8) 12/16/18 06:18 RBC 3.47 m/cumm (4.00-5.20) L 12/16/18 06:18 Hgb 10.9 g/dL (12.0-15.5) L 12/16/18 06:18 Hct 33.5 % (36.0-46.0) L 12/16/18 06:18 MCV 96.5 fL (80-95) H 12/16/18 06:18 MCH 31.4 pg (27.0-33.0) 12/16/18 06:18 MCHC 32.5 g/dL (32.0-36.0) 12/16/18 06:18 RDW 13.0 % (11.7-14.6) 12/16/18 06:18 Plt Count 247 x1000/uL (130-400) 12/16/18 06:18 MPV 10.1 fL (8.0-11.0) 12/16/18 06:18 Immature Gran % 0.4 12/16/18 06:18 Neutrophils % 69.9 12/16/18 06:18 Lymphocytes % 19.3 12/16/18 06:18 Monocytes % 6.6 12/16/18 06:18 Eosinophils % 3.6 12/16/18 06:18 Basophils % 0.2 12/16/18 06:18 Absolute Neutrophils 5.87 k/cumm (1.2-6.7) 12/16/18 06:18 Absolute Lymphocytes 1.62 k/cumm (1.2-3.4) 12/16/18 06:18 Absolute Monocytes 0.55 k/cumm (0.11-0.7) 12/16/18 06:18 Absolute Eosinophils 0.30 k/cumm (0.0-0.7) 12/16/18 06:18 Absolute Basophils 0.02 k/cumm (0.0-0.2) 12/16/18 06:18 ESR 62 MM/HR (0-20) H 12/13/18 07:50 Sodium 139 mmol/L (136-145) 12/16/18 06:18 Potassium 3.5 mmol/L (3.5-5.1) 12/16/18 06:18 Chloride 103 mmol/L (98-107) 12/16/18 06:18 Carbon Dioxide 26.3 mmol/L (21.0-32.0) 12/16/18 06:18 Anion Gap 9.7 mmol/L (3-11) 12/16/18 06:18 BUN 5 mg/dL (7-18) L 12/16/18 06:18 Creatinine 0.76 mg/dL (0.55-1.02) 12/16/18 06:18 Estimated GFR/1.73 m2 >= 60.00 (mL/min/1.73m2) 12/16/18 06:18 Glucose 95 mg/dL (70-100) 12/16/18 06:18 Hemoglobin A1c 7.5 % (4.5-6.2) H 12/13/18 07:50 Calcium 8.0 mg/dL (8.5-10.1) L 12/16/18 06:18 Magnesium 1.7 mg/dL (1.8-2.4) L 12/14/18 06:24 Total Bilirubin 0.5 mg/dL (0.2-1.0) 12/16/18 06:18 Conjugated Bilirubin 0.31 mg/dL (0.00-0.20) H 12/14/18 06:24 GGT 622 U/L (5-55) H 12/14/18 06:24 AST 32 U/L (15-37) 12/16/18 06:18 ALT 94 U/L (12-78) H 12/16/18 06:18 Alkaline Phosphatase 246 U/L (46-116) H 12/16/18 06:18 Troponin I < 0.02 ng/mL (0.00-0.06) 12/13/18 03:30 C-Reactive Protein 4.73 mg/dL (0.0-0.3) H 12/14/18 06:24 Total Protein 6.6 g/dL (6.4-8.2) 12/16/18 06:18 Albumin 2.9 g/dL (3.4-5.0) L 12/16/18 06:18 Lipase 263 U/L (73-393) 12/12/18 23:36 Procalcitonin 0.2 ng/mL 12/13/18 03:30 Urine Color Yellow (Yellow) 12/13/18 00:20 Urine Clarity Clear 06/07/19 00:20 Urine pH 6.5 (5-8) 12/13/18 00:20 Ur Specific [place] 1.010 (1.005-1.025) 12/13/18 00:20 Urine Protein Negative mg/dL (Negative) 12/13/18 00:20 Urine Ketones Negative mg/dL (Negative) 12/13/18 00:20 Urine Blood Negative (Negative) 12/13/18 00:20 Urine Nitrite Negative (Negative) 12/13/18 00:20 Urine Bilirubin Negative (Negative) 12/13/18 00:20 Urine Urobilinogen 0.2 EU/dL (Up TO 0.2) 12/13/18 00:20 Ur Leukocyte Esterase Negative (Negative) 12/13/18 00:20 Urine Glucose Negative mg/dL (Negative) 12/13/18 00:20 Urine Opiates Screen Negative (Negative) 12/13/18 00:20 Urine Methadone Screen Negative (Negative) 12/13/18 00:20 Ur Barbiturates Screen Negative (Negative) 12/13/18 00:20 Ur Tricyclics Screen Negative (Negative) 12/13/18 00:20 Ur Amphetamines Screen Negative (Negative) 12/13/18 00:20 U Benzodiazepines Scrn Negative (Negative) 12/13/18 00:20 Urine Cocaine Screen Negative (Negative) 12/13/18 00:20 Ur THC Screen Positive (Negative) 12/13/18 00:20
[2018-12-16 10:04] VITALS: BP 152/83; PULSE 75; RESP 16; TEMP 37.3; O2SAT 98
[2018-12-16] MEDS: POTASSIUM CHLORIDE/D5-0.45NACL 1,000 ML 125 MEQ IV (10:28)
[2018-12-16 11:58] LABS: Hepatitis A Antibody IgM Negative (NEGAT); Hepatitis B Core Antibody Negative (NEGAT); Hepatitis B surface Ag Negative (NEGAT); Hepatitis C Ab w Rflx HCV PCR Negative (NEGAT)
--- NOTE | 2018-12-16 12:38 | NUTRITION ---
Patient transferred via [facility] to [facility] for an ERCP at approximately 10:30 this morning. 4mg morphine was given at this time for pain control before transport. Patient went out with left AC IV access. Fluid was changed to D51/2 NS with 20meq KCL.
--- NOTE | 2018-12-16 13:03 | PDOC.CMPRO ---
- If Service Date Differs Date of service: 12/16/18 Time of Service: 13:03 Care Management Progress Note S/O: Lucina was resting in bed visiting with her . She was waiting to go to [facility] for an ERCP. She will return to [facility] later this afternoon. Further care will be determined by the results of the procedure. A: Lucina is a 48 yo female admitted to [facility] on 12/13/18 with abdominal pain and elevated LFTs P: Lucina is scheduled to go to [facility] today and return following the scheduled ERCP. Anticipate she will return home with her and no services will be needed. CM will continue to provide support to the patient and family and discharge plan of care.
--- NOTE | 2018-12-16 13:08 | CMPROGNOTE_ITS ---
- If Service Date Differs Date of service: 12/16/18 Time of Service: 13:03 Care Management Progress Note S/O: Lucina was resting in bed visiting with her . She was waiting to go to [facility] [place]. She will return to [facility] later this afternoon. Further care will be determined by the results of the procedure. A: Lucina is a 48 yo female admitted to [facility] on 12/13/18 with abdominal pain and elevated LFTs P: Lucina is scheduled to go to [facility] today and return following the scheduled ERCP. Anticipate she will return home with her and no services will be needed. CM will continue to provide support to the patient and family and discharge plan of care.
[2018-12-16 16:10] VITALS: BP 146/83; PULSE 66; RESP 16; TEMP 36.5; O2SAT 98
--- NOTE | 2018-12-16 16:30 | NUR.NOTE ---
Patient arrived from [facility] at approximately 16:05. Nursing report from [facility] noted that the patient had a few small stones and a copious amount of sludge from the ERCP. Otherwise the procedure went as expected, the patient's vital signs were stable and she did not report any pain after the procedure. The patient arrived with lactated ringer's and per [facility] protocol is finishing her second liter. The patient's finger stick was done at approximately 16:25 and the patient's blood glucose was 153 which is significantly higher than her earlier blood glucose at 12:00 of 88. Awaiting orders for fluids. Nursing Note:
[2018-12-16] MEDS: Insulin Aspart 300 UNITS/3 ML PEN SC (17:02)
[2018-12-16] MEDS: Atorvastatin 40 MG TAB PO (20:10)
[2018-12-16 20:29] VITALS: BP 144/72; PULSE 70; RESP 19; TEMP 37.1; O2SAT 96
[2018-12-16] MEDS: CIPROFLOXACIN 200 MG/100 ML BAG 100 MG IVPB (21:41)
[2018-12-16 23:39] VITALS: BP 168/83; PULSE 66; RESP 18; TEMP 36.7; O2SAT 96
[2018-12-17 04:21] VITALS: BP 133/69; PULSE 66; RESP 16; TEMP 36.2; O2SAT 97
[2018-12-17] MEDS: Normal Saline Flush 10 ML SYR IVP (05:30)
[2018-12-17] MEDS: metroNIDAZOLE 500 MG/100 ML BAG 100 MG IVPB (05:30)
[2018-12-17] MEDS: Acetaminophen 325 MG TAB 650 MG PO (06:48)
[2018-12-17 07:21] LABS: ALT 102 U/L (12-78); AST 54 U/L (15-37); Albumin 3.2 g/dL (3.4-5.0); Alkaline Phosphatase 399 U/L (46-116); BUN 8 mg/dL (7-18); Bilirubin, Total 0.5 mg/dL (0.2-1.0); CREATININE 0.85 mg/dL (0.55-1.02); Calcium 8.1 mg/dL (8.5-10.1); Chloride 105 mmol/L (98-107); Glucose 142 mg/dL (70-100); Potassium 3.8 mmol/L (3.5-5.1); Sodium 141 mmol/L (136-145); Total Protein 7.1 g/dL (6.4-8.2)
[2018-12-17 07:25] VITALS: BP 131/81; PULSE 55; RESP 16; TEMP 36.2; O2SAT 97
[2018-12-17] MEDS: FAMOTIDINE 20 MG/50 ML BAG 200 MG IVPB (08:02)
[2018-12-17] MEDS: Insulin Aspart 300 UNITS/3 ML PEN SC ×2 (08:02→12:04)
[2018-12-17] MEDS: Lisinopril 5 MG TAB 2.5 MG PO (08:03)
[2018-12-17] MEDS: Clopidogrel 75 MG TAB PO (08:04)
[2018-12-17] MEDS: Aspirin E.C. 81 MG TABEC PO (08:04)
[2018-12-17 08:09] VITALS: PULSE 68
[2018-12-17] MEDS: Metoprolol CR 25 MG TABCR PO (08:09)
[2018-12-17 11:10] VITALS: BP 138/82; PULSE 80; RESP 16; TEMP 37; O2SAT 98
[2018-12-17] MEDS: oxyCODONE 5 MG TAB PO (11:33)
--- NOTE | 2018-12-17 13:15 | DSE_ITS ---
Date of service: 12/17/18 Time of Service: 13:08 DS: Diagnosis Discharge Diagnosis (1) Choledocholithiasis with obstruction: Status: Resolved Asessment and Plan: Presented with abdominal pain and elevated transaminase levels and alkaline phosphatase with MRCP showing choledocholithiasis. Successful ERCP at [facility] [facility] 12/16/2018. No complications from ERCP (done on dual antiplatelet therapy given less than 12-month old coronary stent). Never febrile or with elevated white count. Was on prophylactic antibiotics. No complications from ERCP. (2) History of coronary atherosclerosis: Status: Chronic Asessment and Plan: No ischemic symptoms or biomarkers. No change in secondary prevention medications during hospitalization. (3) Hypokalemia: Status: Resolved Asessment and Plan: Mild hypokalemia on admission at 3.4, normalized with oral repletion, 3.8 morning of discharge. (4) Diabetes type 2, uncontrolled: Status: Acute Asessment and Plan: New diagnosis this admission with initial presenting blood sugar of 262 and hemoglobin A1c of 7.5%. Fasting blood sugar subsequent to admission ranging from 95-142. Given aspart insulin 1 to 2 units episodically in association with meals. Provided basic diabetes education. Will be going home with glucose meter and will need outpatient follow-up and a decision as to whether or not medication, such as metformin, is warranted if lifestyle interventions fail. Discharge Plan Disposition Condition: Good Discharge Details Chief Complaint: Abd Prob Reason For Visit: ABDOMINAL PAIN; ELEVATED LFTS Admit Date/Time: 12/13/18 04:12 Admit Provider: Anibal Julien Attending Provider: Anibal Julien Primary Care Provider: Unknown,Unknown ED Provider: Ayaan Delgado [facility] Course Hospital Course: 48-year-old woman with history of non-ST elevation [place] 8 months ago, still on dual antiplatelet therapy, presented to the emergency room complaining of epigastric and periumbilical pain, radiation across her abdomen and into her back. Symptoms began the night prior with associated nausea but no vomiting. She has a history of choledocholithiasis and cholecystitis in the mid 1990s, status post ERCP and cholecystectomy. She had no prior recurrence of choledocholithiasis since that time. On presentation she had moderate abdominal tenderness without rebound. Lab work showed modestly elevated bilirubin, elevated transaminase levels in the 200s and an elevated alkaline phosphatase in the high 400s, normal lipase. CT of the abdomen pelvis showed postcholecystectomy changes but with biliary ductal dilatation and pneumobilia, no CT evidence of pancreatitis. She was admitted for further evaluation of her symptoms and symptom management. MRCP was performed which showed an 8 mm stone in the common bile duct. She was prophylactically placed on antibiotics pending ERCP. This was successfully performed at [facility] on December 16 with successful removal of 2 stones, stone fragments and sludge. No report of purulent material. She was never febrile. Her white count on admission was modestly elevated at 11.6, normalized before her ERCP. Her transaminase levels dropped to an AST of 54 and ALT of 102 on the day of discharge. Her alkaline phosphatase remained elevated, 246 before and 399 after her ERCP. She had some mild posterior pharyngeal and epigastric discomfort following her ERCP but was tolerating a regular diet without exacerbation of symptoms. Her blood sugars were elevated during this hospitalization and type 2 diabetes was diagnosed. She was given basic information on dietary changes and glucose monitoring. She will be discharged with a home glucose meter and to follow-up with her primary care provider to determine whether or not medication for diabetes is warranted. She was not started on any oral medications for diabetes during this hospitalization. She did receive a few low doses of aspart insulin. She had no problems referable to her coronary artery disease during her hospitalization. No changes were made to any of her chronic medications. No new medications were added. She has no outstanding labs at this time. Home Meds and New Rx's Prescriptions: [facility] .MEDSUPPLY Qty: 50 RF: 0 Continued atorvastatin 80 mg Tablet 80 mg PO QHS RF: 0 clopidogrel [Plavix] 75 mg Tablet 75 mg PO DAILY RF: 0 aspirin 81 mg Tablet,Delayed Release (Dr/Ec) 81 mg PO DAILY RF: 0 famotidine [Pepcid] 20 mg Tablet 20 mg PO BID RF: 0 nitroglycerin 0.4 mg Tablet, Sublingual 0.4 mg SUBLINGUAL Q5-15M PRNRF: 0 albuterol sulfate 90 mcg/actuation Hfa Aerosol Inhaler 2 puff INHALATION QID PRNRF: 0 lisinopril 2.5 mg Tablet 2.5 mg PO DAILY RF: 0 melatonin 5 mg Tablet 5 mg PO HS PRNRF: 0 metoprolol succinate 25 mg Tablet Extended Release 24 Hr 25 mg PO DAILY RF: 0 Discharge Instructions Instructions: How to Check Your Blood Sugar (DC), Diabetes Mellitus Type 2 in Adults (DC), ERCP (Endoscopic Retrograde Cholangiopancreatography) (DC), Meal Planning with Diabetes Exchanges (DC) Additional Instructions: Call your primary care provider or return to the emergency room if you have recurrent abdominal pain nausea or vomiting. Check your blood sugar once a day, varying the time between before the first meal of the day and 2 hours after the largest meal of the day. Keep a record of your blood sugars and take the log to your Primary Care Provider at your follow up visit. Stand Alone Forms: Nursing Discharge Form Referrals: [facility] [Outside] (Dr. Wilkins 12/31/18 at 3:30pm) Activity:: Activity as Tolerated Activity:: Activity as Tolerated Equipment/Supplies:: Blood Glucose Monitor Diet:: Carb Counting DS: Summary Status at Discharge Functional status at discharge: independent ambulation Overall status at discharge: patient is back to baseline Time Spent with Patient Greater than 30 minutes Exam Narrative Exam Narrative: On the day of discharge she is awake alert afebrile, with blood pressures in the 130s systolic and in no acute distress. Sclera anicteric. Speech clear. No JVD. Lungs are clear. Regular heart rhythm without S3 or S4 or murmur heard. Active bowel sounds with very mild tenderness to palpation in the epigastric area, no tenderness in the right upper quadrant, no guarding or rebound. Normal pulses distally. Transfers independently. DS: Data Vitals/I&O Vitals and I&O: Vital Signs Temperature 37 C 12/17/18 11:10 Temperature Source Tympanic 12/17/18 11:10 Pulse 80 12/17/18 11:10 Pulse Rhythm Regular 12/17/18 07:50 Respiratory Rate 16 12/17/18 11:10 Respiratory Effort Non-Labored 12/17/18 07:50 Respiratory Depth Normal 12/17/18 07:50 Respiratory Pattern Normal 12/17/18 07:50 Blood Pressure 138/82 12/17/18 11:10 Blood Pressure Mean 87 12/13/18 04:34 Blood Pressure Position Sitting 12/12/18 23:27 Pulse Oximetry 98 12/17/18 11:10 Oxygen Delivery Method Room Air 12/17/18 11:10 Oxygen Flow Rate 0 12/17/18 11:10 Pain Level 5 12/17/18 11:33 Intake & Output 12/16/18 12/17/18 12/17/18 23:59 11:59 23:59 Intake Total 1270 / 2589 910 / 1600 690 / 1600 Balance 1270 / 2589 910 / 1600 690 / 1600 Weight 78.1 kg Intake: IV 1270 / 2589 250 / 250 Oral 660 / 1350 690 / 1350 Other: Urine Color Pale Yellow Urine Appearance Clear Clear Urine Odor None Comment per patient verbalization Voiding Methods Toilet Labs on day of discharge: Labs from last 24 hours 12/17/18 12/13/18 06:30 03:30 Sodium 141 Potassium 3.8 Chloride 105 Carbon Dioxide 27.0 Anion Gap 9.0 BUN 8 Creatinine 0.85 Estimated GFR/1.73 m2 >= 60.00 Glucose 142 H Calcium 8.1 L Total Bilirubin 0.5 AST 54 H ALT 102 H Alkaline Phosphatase 399 H Total Protein 7.1 Albumin 3.2 L Hepatitis A IgM Ab Negative Hep Bs Antigen Negative Hep B Core Total Ab Negative Hepatitis C Antibody Negative PFS Medical History History of coronary atherosclerosis (Chronic) History of non-ST elevation myocardial infarction (NSTEMI) (Resolved 04/30/18) CAD (coronary artery disease) (Chronic 04/30/18) COPD (chronic obstructive pulmonary disease) (Chronic) GERD (gastroesophageal reflux disease) (Chronic) HTN (hypertension) (Chronic) Surgical History History of heart artery stent (Chronic 05/01/18) Hx of exploratory laparotomy (Chronic) S/P cholecystectomy (Chronic ~1994) Social History Smoking/Tobacco Use Status: Former Tobacco Use Quit Date: 04/30/18 Pack-years: 61 Alcohol Intake: never Substance use type: does not use Do you feel safe in your relationship?: Yes History History 4 Para Hx # Term Pregnancies 2 Multiple births Hx # Pregnancies Ectopic pregnancies 1 AB induced Hx Number of Living Children 2 AB spontaneous 1
--- NOTE | 2018-12-17 14:13 | CHAPLAIN ---
I introduced myself as the [facility] Booking Officer and Lucina said she was not interested in speaking with me at all.
--- NOTE | 2018-12-17 16:31 | PDOC.CMDIS ---
- If Service Date Differs Date of service: 12/17/18 Time of Service: 16:32 LACE Index Scoring Tool - Questions: Length of Stay (in days): 4 - 6 Acuity (Admit via E.D.?): Yes Comorbidities: Previous M.I., Chronic Pulmonary Disease E.D. Visits: 2 - Answers: Total Score: 12 Risk of Readmission: High Risk Care Management Discharge Reason for Hospitalization: abdominal pain, elevated LFT's Discharge Plan: Lucina will be discharged home with no services. She will follow up with her PCP, [place] [facility] and discharge plan of care. Lucina will be transported by her via private vehicle. Patient/Family Education Needs: Discharge plan, follow up plan of care, Diabetes education and Ask Me Three.
--- NOTE | 2018-12-17 16:48 | CMDISCH_ITS ---
- If Service Date Differs Date of service: 12/17/18 Time of Service: 16:32 LACE Index Scoring Tool - Questions: Length of Stay (in days): 4 - 6 Acuity (Admit via E.D.?): Yes Comorbidities: Previous M.I., Chronic Pulmonary Disease E.D. Visits: 2 - Answers: Total Score: 12 Risk of Readmission: High Risk Care Management Discharge Reason for Hospitalization: abdominal pain, elevated LFT's Discharge Plan: Lucina will be discharged home with no services. She will follow up with her PCP, Dr. Nolen at [facility] [facility], and discharge plan of care. Lucina will be transported by her via private vehicle. Patient/Family Education Needs: Discharge plan, follow up plan of care, Diabetes education and Ask Me Three.
== END 2018-12-17 13:59 | DRG 446 ==
LOC: ER 12-13 04:34 → MS 12-13 04:54
PROVIDERS: Family Medicine; Internal Medicine; Admitting Provider Internal Medicine; Emergency Provider Emergency Medicine; Visit Provider Internal Medicine
DX: K80.51 Calculus of bile duct without cholangitis or cholecystitis with obstruction (principal); E11.65 Type 2 diabetes mellitus with hyperglycemia; E87.6 Hypokalemia; K21.9 Gastro-esophageal reflux disease without esophagitis; J44.9 Chronic obstructive pulmonary disease, unspecified; Z87.891 Personal history of nicotine dependence; I10 Essential (primary) hypertension; Z90.49 Acquired absence of other specified parts of digestive tract; I25.10 Atherosclerotic heart disease of native coronary artery without angina pectoris; Z95.5 Presence of coronary angioplasty implant and graft; I25.2 Old myocardial infarction
CPT/HCPCS: 36415; 80048; 80053; 80076; 80307; 83690; 84145; 85652; 86704; 86709; 86803; 87340; 93005; 96361; 96374; 96375; 99223; 99232; 99239; 99285; J1650; NC; 43264; 74177; 74181; 76700; 81003; 82248; 82977; 83036; 83735; 84484; 85025; 86140; 93010; A0425; A0426; J0744; J2405; J3490

== ENCOUNTER 2019-08-11 18:00 | Emergency (ER) | payer SELFPAY ==
[2019-08-11 18:08] VITALS: BP 145/88; PULSE 85; RESP 18; TEMP 36.7; O2SAT 97
--- NOTE | 2019-08-11 18:21 | W.ED.GENAD ---
Discharge Plan Disposition Patient Disposition: HOME Condition: Stable Discharge Details Chief Complaint: DentalOral Clinical Impression: Odontalgia Primary Care Provider: Unknown,Unknown ED Provider: Dain Baugh Home Meds and New Rx's Prescriptions: New penicillin V potassium 500 mg tablet 500 mg PO QID 10 Days Qty: 40 RF: 0 No Action metformin 500 mg Tablet Extended Release 24 Hr 500 mg PO DAILY RF: 0 atorvastatin 80 mg Tablet 80 mg PO QHS RF: 0 clopidogrel [Plavix] 75 mg Tablet 75 mg PO DAILY RF: 0 aspirin 81 mg Tablet,Delayed Release (Dr/Ec) 81 mg PO DAILY RF: 0 nitroglycerin 0.4 mg Tablet, Sublingual 0.4 mg SUBLINGUAL Q5-15M PRNRF: 0 albuterol sulfate 90 mcg/actuation Hfa Aerosol Inhaler 2 puff INHALATION QID PRNRF: 0 lisinopril 2.5 mg Tablet 5 mg PO DAILY RF: 0 metoprolol succinate 25 mg Tablet Extended Release 24 Hr 25 mg PO DAILY RF: 0 (DME) lancets 26 gauge misc See Dose Instructions .ROUTE .MEDSUPPLY Qty: 50 RF: 0 Discharge Instructions Instructions: Toothache (ED) Additional Instructions: Please see enclosed resources for dental follow-up in the [facility]. You may follow-up also with community connections at [phone]. Take penicillin as prescribed. Continue Tylenol and/or ibuprofen as needed for pain. May gargle salt water to speed healing. Return for worsening swelling, difficulty controlling her secretions, or any other acute concerns. Medical Decision Making 48-year-old female with right maxillary dental infection at tooth approximately #3. Provided regional oral anesthesia with infraorbital block. Placed on penicillin which she is tolerated the past. She is referred for dentistry follow-up. She understands homecare as well as indications to seek emergent reevaluation. HPI General Mode of arrival: ambulatory. Date/Time Provider Initiated Documentation: 08/11/19 18:01. Limitations to Documentation: no limitations. Information obtained by: patient. History of Present Illness 48 year old F presents to the emergency department with the chief complaint of Right cheek swelling, poor dentition, described as moderate and similar to prior episodes, Quality is described as dull and constant, and is localized to the face, mouth and right. Patient reports no radiation. Patient started experiencing this hour(s) and it has been constant. No relieving factors improve symptom(s), No exacerbating factors reported . Patient notes denies fever/chills and nausea/vomiting. Patient did receive the following treatments prior to arrival, none Related Data Home Medications Medication Instructions Recorded Confirmed albuterol sulfate 2 puff INHALATION QID PRN 12/12/18 08/11/19 aspirin 81 mg PO DAILY 12/12/18 08/11/19 atorvastatin 80 mg PO QHS 12/12/18 08/11/19 clopidogrel [Plavix] 75 mg PO DAILY 12/12/18 08/11/19 lisinopril 5 mg PO DAILY 12/12/18 08/11/19 nitroglycerin 0.4 mg SUBLINGUAL Q5-15M PRN 12/12/18 08/11/19 metoprolol succinate 25 mg PO DAILY 12/13/18 08/11/19 lancets #50 each 12/17/18 metformin 500 mg PO DAILY 08/11/19 08/11/19 penicillin V potassium 500 mg PO QID 10 Days #40 tab 08/11/19 Previous Rx's Medication Instructions Recorded lancets #50 each 12/17/18 penicillin V potassium 500 mg PO QID 10 Days #40 tab 08/11/19 Allergies Allergy/AdvReac Type Severity Reaction Status Date / Time cefuroxime [From Ceftin] Allergy Intermediate GI Bleeding Unverified 08/11/19 18:14 General Stated Complaint: DentalOral BETTINA: 3 Review of Systems Narrative: 6 systems reviewed and otherwise negative. [facility] Medical History CAD (coronary artery disease) (Chronic 04/30/18) NSTEMI 04/30/2018, [place] [facility] [place] [facility]/01/[place]: 70% mid LAD, 50% prox. 1st diagonal, 95% prox RCA; KIRSTAL placed in RCA COPD (chronic obstructive pulmonary disease) (Chronic) GERD (gastroesophageal reflux disease) (Chronic) History of coronary atherosclerosis (Chronic) History of non-ST elevation myocardial infarction (NSTEMI) (Resolved 04/30/18) HTN (hypertension) (Chronic) Surgical History (Updated 12/13/18 @ 06:12 by Anibal Julien) History of heart artery stent (Chronic 05/01/18) KRISTAL placed in RCA 05/01/2018, [place] Kahteryn Muir, [facility] Hx of exploratory laparotomy (Chronic) 2 exploratory laps: 1st one for tubal , 2nd for ovarian cyst S/P cholecystectomy (Chronic ~1994) lap [place], [place]; after ERCP for choledocholithiasis (performed at [facility], [place], [place], [place] Social History Smoking/Tobacco Use Status: Former Tobacco Use Quit Date: 04/30/18 Pack-years: 61 Alcohol Intake: never Drug use: Daily Substance use type: marijuana Do you feel safe at home: Yes Do you feel safe in your relationship?: Yes History History 4 Para Hx # Term Pregnancies 2 Multiple births Hx # Pregnancies Ectopic pregnancies 1 AB induced Hx Number of Living Children 2 AB spontaneous 1 Exam Narrative Exam Narrative: GEN: awake, alert, oriented 3. Pleasant, well groomed, interactive. HEAD: Normocephalic, atraumatic ENT: Mucous membranes moist, oropharynx with poor dentition, numerous missing teeth, dental caries, there is a stub of tooth approximately #3, right maxilla, tender, no lingual and minimal buccal swelling. The uvula is midline. EYES: PERRL, EOMI NECK: Full ROM, no BARBARA, no menigismus CHEST/RESP: Nontender, clear to auscultation bilateral, no wheeze/rhonchi/rales CARDIOVASCULAR: RRR, no murmur, rub ana cristina. 2+ Rad pulse bilateral ABDOMEN: Soft, nontender, no mass. +Bowel sounds EXT: Full ROM, no edema, no rash Neuro: Grossly normal neurologic exam, conversant, interactive. Psych: Speech fluent, thoughts congruent, affect normal Course Vital Signs Vital signs: Vital Signs Temperature 36.7 C 08/11/19 18:08 Pulse 85 08/11/19 18:08 Respiratory Rate 18 08/11/19 18:08 Blood Pressure 145/88 H 08/11/19 18:08 Pulse Oximetry 97 08/11/19 18:08 Temperature 36.7 C 08/11/19 18:08 Temperature Source Temporal Artery Scan 08/11/19 18:08 Pulse 85 08/11/19 18:08 Respiratory Rate 18 08/11/19 18:08 Respiratory Effort Non-Labored 08/11/19 18:13 Blood Pressure 145/88 H 08/11/19 18:08 Blood Pressure Position Sitting 08/11/19 18:08 Pulse Oximetry 97 08/11/19 18:08 Oxygen Delivery Method Room Air 08/11/19 18:08 Oxygen Flow Rate 0 08/11/19 18:08 Pain Level 10 08/11/19 18:17 Procedures Nerve Block Nerve Block 1: Local Anesthetic: Lidocaine 1% and Bupivicaine 0.25% Amount of anesthesia used (mL): 2 Intraoral Nerve Block: other (Infraorbital) Procedure Successful: Yes
[2019-08-11] MEDS: Lidocaine 1% Multi-Dose 50 ML VIAL IJ (18:25)
[2019-08-11] MEDS: Ondansetron O.D.T. 4 MG TABEF PO (18:25)
[2019-08-11] MEDS: Bupivacaine 0.5% Pres-Free 30 ML VIAL (18:28)
[2019-08-11] MEDS: Penicillin V POTASSIUM 500 MG TAB, 4 TABS/BTL PO (18:29)
== END 2019-08-11 18:35 | disposition home or self-care (01) ==
PROVIDERS: Emergency Provider Emergency Medicine
DX: R68.84 Jaw pain (principal); K04.7 Periapical abscess without sinus; J44.9 Chronic obstructive pulmonary disease, unspecified; Z87.891 Personal history of nicotine dependence; I10 Essential (primary) hypertension
CPT/HCPCS: 64450

== ENCOUNTER 2019-08-14 09:44 | Emergency (ER) | payer SELFPAY ==
[2019-08-14 09:50] VITALS: BP 121/84; PULSE 105; RESP 18; TEMP 36.5
--- NOTE | 2019-08-14 10:45 | ED.GENADUL_ITS ---
Discharge Plan Disposition Patient Disposition: HOME Condition: Stable Discharge Details Chief Complaint: GenMedical Clinical Impression: Abdominal pain Primary Care Provider: None,None ED Provider: Chery Jacobsen Home Meds and New Rx's Prescriptions: New ondansetron HCl [Zofran] 4 mg tablet 4 mg PO Q8H PRN (Reason: nausea and vomiting) Qty: 14 RF: 0 Continued metformin 500 mg Tablet Extended Release 24 Hr 500 mg PO DAILY RF: 0 penicillin V potassium 500 mg tablet 500 mg PO QID 10 Days Qty: 40 RF: 0 atorvastatin 80 mg Tablet 80 mg PO QHS RF: 0 clopidogrel [Plavix] 75 mg Tablet 75 mg PO DAILY RF: 0 aspirin 81 mg Tablet,Delayed Release (Dr/Ec) 81 mg PO DAILY RF: 0 nitroglycerin 0.4 mg Tablet, Sublingual 0.4 mg SUBLINGUAL Q5-15M PRNRF: 0 albuterol sulfate 90 mcg/actuation Hfa Aerosol Inhaler 2 puff INHALATION QID PRNRF: 0 lisinopril 2.5 mg Tablet 5 mg PO DAILY RF: 0 metoprolol succinate 25 mg Tablet Extended Release 24 Hr 25 mg PO DAILY RF: 0 (DME) lancets 26 gauge misc See Dose Instructions .ROUTE .MEDSUPPLY Qty: 50 RF: 0 Discharge Instructions Instructions: Abdominal Pain (ED) Additional Instructions: Continue taking antibiotics as previously prescribed. Take with food. Increase oral fluids. Take nausea medications 20 minutes before taking anything orally. Follow up with primary care provider in 3-5 days. Return to ED sooner if any worsening or concerns. Please take Tylenol or Ibuprofen with food every 4-6 hours as needed for pain and swelling. Medical Decision Making 48-year-old female presents with generalized abdominal pain and decreased oral intake after being diagnosed with a dental abscess couple days ago. She is taking penicillin 500 mg twice a day and is waiting to be seen by the dentist at this time. She does not have a primary care provider. Abdomen is soft without guarding or rebound tenderness at this time. She has no anterior lymphadenopathy and is speaking in full sentences and not drooling. Denies chest pain or SOB. 1143: Patient reevaluation, patient has received Zofran and GI cocktail and states that she feels no better. Has not tried any p.o. fluids. IV orders in place with labs. We will give a bolus of normal saline. Labs ordered including CBC, CMP which showed leukocytosis at 14.6, a gap of 12.4 and glucose 136. urine was WNL except for small bilirubin and trace ketones. 1430: Patient given 1 L normal saline, 4 mg IV Zofran and at reevaluation she feels better. Is taking oral fluids at this time and feels ok enough to be discharged home. HPI General Mode of arrival: ambulatory . Date/Time Provider Initiated Documentation: 08/14/19 10:22 . Limitations to Documentation: no limitations . Information obtained by: patient . History of Present Illness described as mild, with intensity rated at 4. HPI Narrative: 48-year-old female presents with generalized abdominal pain decreased appetite, nausea for the last 2 days. Patient was seen recently diagnosed with a right upper molar dental abscess and placed on penicillin. Patient reports that she is still taking her penicillin. Denies fever, constipation, chest pain, or shortness of breath. Related Data Home Medications Medication Instructions Recorded Confirmed albuterol sulfate 2 puff INHALATION QID PRN 12/12/18 08/14/19 aspirin 81 mg PO DAILY 12/12/18 08/14/19 atorvastatin 80 mg PO QHS 12/12/18 08/14/19 clopidogrel [Plavix] 75 mg PO DAILY 12/12/18 08/14/19 lisinopril 5 mg PO DAILY 12/12/18 08/14/19 nitroglycerin 0.4 mg SUBLINGUAL Q5-15M PRN 12/12/18 08/14/19 metoprolol succinate 25 mg PO DAILY 12/13/18 08/14/19 lancets #50 each 12/17/18 metformin 500 mg PO DAILY 08/11/19 08/14/19 penicillin V potassium 500 mg PO QID 10 Days #40 tab 08/11/19 08/14/19 ondansetron HCl [Zofran] 4 mg PO Q8H PRN #14 tab 08/14/19 Previous Rx's Medication Instructions Recorded lancets #50 each 12/17/18 penicillin V potassium 500 mg PO QID 10 Days #40 tab 08/11/19 ondansetron HCl [Zofran] 4 mg PO Q8H PRN #14 tab 08/14/19 Allergies Allergy/AdvReac Type Severity Reaction Status Date / Time cefuroxime [From Ceftin] Allergy Intermediate GI Bleeding Unverified 08/11/19 18:14 General Stated Complaint: GenMedical BETTINA: 3 Review of Systems Narrative: Constitutional: Negative for weight loss, alert and oriented, well groomed, normal body habitus, appears comfortable. HEENT: Denies trauma, headaches, blurry vision, nasal discharge, sore throat, trouble swallowing. Chest: Denies chest pain, palpitations, irregular rhythm, hypertension. Respiratory: Denies Shortness of breath, cough, hemoptysis. GI: Denies constipation. Reports generalized abdominal pain, nausea, loose stools. : Denies dysuria, hematuria, flank pain, vaginal bleeding, rectal bleeding. Neuro: Denies dizziness, blurry vision, weakness, syncope, headache or facial numbness. Hematologic: Denies easy bruising, intolerance to heat or cold, hair loss. [facility], [facility] Medical History CAD (coronary artery disease) (Chronic 04/30/18) NSTEMI 04/30/2018, [place] [facility] [place] [facility] 05/01/[place]: 70% mid LAD, 50% prox. 1st diagonal, 95% prox RCA; KRISTAL placed in RCA COPD (chronic obstructive pulmonary disease) (Chronic) GERD (gastroesophageal reflux disease) (Chronic) History of coronary atherosclerosis (Chronic) History of non-ST elevation myocardial infarction (NSTEMI) (Resolved 04/30/18) HTN (hypertension) (Chronic) Surgical History History of heart artery stent (Chronic 05/01/18) KRISTAL placed in RCA 05/01/2018, [place] Katheryn Muir, [facility] Hx of exploratory laparotomy (Chronic) 2 exploratory laps: 1st one for tubal , 2nd for ovarian cyst S/P cholecystectomy (Chronic ~1994) lap [place], [place]; after ERCP for choledocholithiasis (performed at [facility], [place], [place] Family History Mother Stroke onset in her 40's Myocardial infarction COPD (chronic obstructive pulmonary disease) age 68 Heart disease onset in her 40's Social History (Reviewed 08/14/19 @ 10:56 by Chery Sears Smoking/Tobacco Use Status: Former Tobacco Use Quit Date: 04/30/18 Pack-years: 60 Alcohol Intake: never Drug use: Daily Substance use type: marijuana Do you feel safe at home: Yes Do you feel safe in your relationship?: Yes History History 2 4 Para Hx # Term Pregnancies 2 Multiple births Hx # Pregnancies Ectopic pregnancies 1 AB induced Hx Number of Living Children 2 AB spontaneous 1 Exam Resp Effort & Inspection: normal respiratory effort, able to speak in complete sentences and normal respiratory pattern Cardio Rate: regular rate Rhythm: regular rhythm Heart Sounds: S1 normal and S2 normal GI Inspection: normal to inspection Palpation: soft, not firm, no guarding and tender (Generalized) Auscultation: normal bowel sounds Course Vital Signs Vital signs: Vital Signs Temperature 36.5 C 08/14/19 09:50 Pulse 105 H 08/14/19 09:50 Respiratory Rate 18 08/14/19 09:50 Blood Pressure 121/84 08/14/19 09:50 Temperature 36.5 C 08/14/19 09:50 Temperature Source Skin 08/14/19 09:50 Pulse 105 H 08/14/19 09:50 Respiratory Rate 18 08/14/19 09:50 Blood Pressure 121/84 08/14/19 09:50 Pain Level 0 08/14/19 09:50
[2019-08-14] MEDS: Ondansetron O.D.T. 4 MG TABEF PO (10:59)
[2019-08-14 12:20] VITALS: BP 140/86; PULSE 80; RESP 18; TEMP 36.6; O2SAT 98
[2019-08-14] MEDS: Normal Saline 1,000 ML 1000 ML IV (12:42)
[2019-08-14] MEDS: Normal Saline Flush 10 ML SYR IVP (12:42)
[2019-08-14 12:48] LABS: Bilirubin Small (Negative); Blood Negative (Negative); Clarity Cloudy (Clear); Glucose Negative (Negative); Ketones Trace mg/dL (Negative); Leukocyte Esterase Negative (Negative); Nitrite Negative (Negative); Specific Gravity 1.025 (1.005-1.025); Urobilinogen 0.2 EU/dL (Up TO 0.2); pH 5.5 (5-8)
[2019-08-14 12:51] LABS: Abs Immature Grans 0.09 k/cumm (0.0-0.09); Absolute Basophil Count 0.03 k/cumm (0.0-0.2); Absolute Eosinophil Count 0.19 k/cumm (0.0-0.7); Absolute Monocyte Count 0.85 k/cumm (0.11-0.7); Basophils % 0.2; Eosinophils % 1.3; HCT 39.4 % (36.0-46.0); HGB 13.1 g/dL (12.0-15.5); Immature Grans % 0.6 %; Lymphocytes % 16.8; Mean Corp. HGB Concentration 33.2 g/dL (32.0-36.0); Mean Corpuscular Hemoglobin 31.2 pg (27.0-33.0); Mean Corpuscular Volume 93.8 fL (80-95); Mean Platelet Volume 9.7 fL (8.0-11.0); Monocytes % 5.7; Neutrophils % 75.4; Platelet Count 324 x1000/uL (130-400); RBC Distribution Width 13.8 % (11.7-14.6); White Blood Cell Count 14.86 k/cumm (4.4-10.8)
[2019-08-14 13:01] LABS: ALT 24 U/L (14-59); AST 14 U/L (15-37); Alkaline Phosphatase 104 U/L (46-116); Anion Gap 12.4 mmol/L (3-11); BUN 17 mg/dL (7-18); Bilirubin, Direct 0.12 mg/dL (0.00-0.20); Bilirubin, Total 0.5 mg/dL (0.2-1.0); CO2 24.6 mmol/L (21.0-32.0); CREATININE 0.84 mg/dL (0.55-1.02); Calcium 8.4 mg/dL (8.5-10.1); Chloride 103 mmol/L (98-107); Glucose 136 mg/dL (74-106); Lipase 105 U/L (73-393); Potassium 3.8 mmol/L (3.5-5.1); Sodium 140 mmol/L (136-145); Total Protein 8.1 g/dL (6.4-8.2)
[2019-08-14 13:05] LABS: C & S Indicated? No/Sq. Contamination; Epithelial Cells Many HPF (Negative)
[2019-08-14 13:32] VITALS: BP 132/102; PULSE 72; RESP 18; TEMP 36.6; O2SAT 99
[2019-08-14] MEDS: cefTRIAXone 1 GM/50 ML BAG IVPB (14:01)
[2019-08-14] MEDS: Ondansetron 4 MG/2 ML VIAL IVP (14:01)
[2019-08-14 14:46] VITALS: BP 108/64; PULSE 70; RESP 18; TEMP 36.7; O2SAT 99
== END 2019-08-14 13:27 | disposition home or self-care (01) ==
PROVIDERS: Emergency Provider Registered Nurse Emergency
DX: R10.84 Generalized abdominal pain (principal); R11.0 Nausea; I10 Essential (primary) hypertension; J44.9 Chronic obstructive pulmonary disease, unspecified; Z87.891 Personal history of nicotine dependence
CPT/HCPCS: 36415; 80053; 80076; 83690; 96361; 96365; 96375; 99284; 81003; 81015; 85025; J0696; J2405

== ENCOUNTER 2019-12-27 15:11 | Emergency (ER) | payer SELFPAY ==
[2019-12-27 15:22] VITALS: BP 124/82; PULSE 102; RESP 18; TEMP 36.4; O2SAT 96
--- NOTE | 2019-12-27 15:30 | DI.RAD_ITS ---
EXAM: XR TOE RT GREAT CLINICAL HISTORY: pain, trauma. TECHNIQUE: 2D digital imaging was performed. COMPARISON: No exams were available for comparison FINDINGS: BONES: No acute fracture is present. No bony destructive lesion is seen. JOINTS: No dislocation present. SOFT TISSUE: Normal. IMPRESSION: No evidence of acute fracture, dislocation, or subluxation. DATA REPOSITORY: RADIATION DOSE DELIVERED:
--- NOTE | 2019-12-27 15:36 | ED.GENADUL_ITS ---
Discharge Plan Disposition Patient Disposition: HOME Condition: Stable Discharge Details Chief Complaint: Orthopedic Clinical Impression: Subungual hematoma of great toe of right foot, Contusion of toe of right foot Primary Care Provider: None,None ED Provider: Kong Coon Home Meds and New Rx's Prescriptions: Continued metformin 500 mg Tablet Extended Release 24 Hr 500 mg PO DAILY RF: 0 atorvastatin 80 mg Tablet 80 mg PO QHS RF: 0 aspirin 81 mg Tablet,Delayed Release (Dr/Ec) 81 mg PO DAILY RF: 0 nitroglycerin 0.4 mg Tablet, Sublingual 0.4 mg SUBLINGUAL Q5-15M PRNRF: 0 albuterol sulfate 90 mcg/actuation Hfa Aerosol Inhaler 2 puff INHALATION QID PRNRF: 0 lisinopril 2.5 mg Tablet 5 mg PO DAILY RF: 0 metoprolol succinate 25 mg Tablet Extended Release 24 Hr 25 mg PO DAILY RF: 0 (DME) lancets 26 gauge misc See Dose Instructions .ROUTE .MEDSUPPLY Qty: 50 RF: 0 Discharge Instructions Instructions: Subungual Hematoma (ED) Additional Instructions: Apply ice your toe. Be sure to use a cloth barrier. Do not apply ice directly to skin. Please take acetaminophen (tylenol) - 650mg every 6 hours by mouth as needed for pain. Return to the ER for any worsening or new concerning symptoms. Medical Decision Making 49-year-old female here with right great toe injury. Small subungual hematoma. Consider toe fracture. Will obtain x-ray. Offered Tylenol and patient declined. HPI General Mode of arrival: ambulatory . Date/Time Provider Initiated Documentation: 12/27/19 15:35 . Limitations to Documentation: no limitations . Information obtained by: patient . HPI Narrative: 49-year-old female presents with chief complaint of toe pain. Patient notes that just prior to arrival she dropped a bottle of cleaning supply onto her great toe. Pain is moderate and worse when she is ambulating and on palpation of the great toe. She has associated bruising under her toenail. No associated numbness. Related Data Home Medications Medication Instructions Recorded Confirmed albuterol sulfate 2 puff INHALATION QID PRN 12/12/18 08/14/19 aspirin 81 mg PO DAILY 12/12/18 12/27/19 atorvastatin 80 mg PO QHS 12/12/18 12/27/19 lisinopril 5 mg PO DAILY 12/12/18 12/27/19 nitroglycerin 0.4 mg SUBLINGUAL Q5-15M PRN 12/12/18 12/27/19 metoprolol succinate 25 mg PO DAILY 12/13/18 12/27/19 lancets #50 each 12/17/18 metformin 500 mg PO DAILY 08/11/19 12/27/19 Previous Rx's Medication Instructions Recorded lancets #50 each 12/17/18 Allergies Allergy/AdvReac Type Severity Reaction Status Date / Time cefuroxime [From Ceftin] Allergy Intermediate GI Bleeding Unverified 08/11/19 18:14 General Stated Complaint: Orthopedic BETTINA: 4 Review of Systems Musculoskeletal Musculoskeletal: Reports as per HPI Integumentary/Breasts Skin/Breast: Reports as per HPI [facility] Medical History CAD (coronary artery disease) (Chronic 04/30/18) NSTEMI 04/30/2018, transfer from [facility] ER to [facility], cardiac cath 05/01/2018: 70% mid LAD, 50% prox. 1st diagonal, 95% prox RCA; KRISTAL placed in RCA COPD (chronic obstructive pulmonary disease) (Chronic) GERD (gastroesophageal reflux disease) (Chronic) History of coronary atherosclerosis (Chronic) History of non-ST elevation myocardial infarction (NSTEMI) (Resolved 04/30/18) HTN (hypertension) (Chronic) Surgical History History of heart artery stent (Chronic 05/01/18) KRISTAL placed in RCA 05/01/2018, Dr. Katheryn Muir, [facility], [place], [place] Hx of exploratory laparotomy (Chronic) 2 exploratory laps: 1st one for tubal , 2nd for ovarian cyst S/P cholecystectomy (Chronic ~1994) lap [place], [place]; after ERCP for choledocholithiasis (performed at [facility], [place], [place] Family History Mother Stroke onset in her 40's Myocardial infarction COPD (chronic obstructive pulmonary disease) age 68 Heart disease onset in her 40's Social History Smoking/Tobacco Use Status: Former Tobacco Use Quit Date: 04/30/18 Pack-years: 61 Alcohol Intake: never Drug use: Daily Substance use type: marijuana Do you feel safe at home: Yes Do you feel safe in your relationship?: Yes History History 4 Para Hx # Term Pregnancies 2 Multiple births Hx # Pregnancies Ectopic pregnancies 1 AB induced Hx Number of Living Children 2 AB spontaneous 1 Exam Const General: cooperative and no acute distress Skin Other: Small subungual hematoma right first toe Extrem Right lower extremity: foot Details: tenderness Location: of the great toe Location: at the proximal phalanx Course Vital Signs Vital signs: Vital Signs Temperature 36.4 C L 12/27/19 15:22 Pulse 102 H 12/27/19 15:22 Respiratory Rate 18 12/27/19 15:22 Blood Pressure 124/82 12/27/19 15:22 Pulse Oximetry 96 12/27/19 15:22 Temperature 36.4 C L 12/27/19 15:22 Temperature Source Temporal Artery Scan 12/27/19 15:22 Pulse 102 H 12/27/19 15:22 Respiratory Rate 18 12/27/19 15:22 Respiratory Effort Non-Labored 12/27/19 15:26 Blood Pressure 124/82 12/27/19 15:22 Pulse Oximetry 96 12/27/19 15:22 End Tidal Co2 3 12/27/19 15:22
--- NOTE | 2019-12-27 16:09 | DI.VRAD_ITS ---
PROCEDURE INFORMATION: Exam: XR Right Toe(s) Exam date and time: 12/27/2019 3:59 PM Age: 49 years old Clinical indication: Pain; Toes; Right; Patient HX: Diabetic. PT had heavy metal can fall on distal portion of toe. TECHNIQUE: Imaging protocol: XR Right toes. Views: Minimum 2 views. COMPARISON: No relevant prior studies available. FINDINGS: Bones/joints: There is mild deformity of the proximal phalanx 2nd toe, possible previous trauma. Bony alignment is anatomic without evidence for fracture or dislocation. Soft tissues: Normal. IMPRESSION: No evidence for fracture. Dictated and Authenticated by: Kay Bennett MD. Ordering:ARY Triana MD
== END 2019-12-27 16:19 | disposition home or self-care (01) ==
PROVIDERS: Emergency Provider Student in an Organized Health Care Education/Training Program
DX: S90.211A Contusion of right great toe with damage to nail, initial encounter (principal); W20.8XXA Other cause of strike by thrown, projected or falling object, initial encounter; J44.9 Chronic obstructive pulmonary disease, unspecified; Z87.891 Personal history of nicotine dependence; I10 Essential (primary) hypertension
CPT/HCPCS: 99283; 73660

== ENCOUNTER 2020-05-12 20:39 | Emergency (ER) | payer SELFPAY ==
[2020-05-12 20:42] VITALS: BP 129/80; PULSE 73; RESP 16; TEMP 36.4; O2SAT 99
--- NOTE | 2020-05-12 21:03 | W.ED.GENAD ---
Discharge Plan Disposition Patient Disposition: HOME Condition: Stable Discharge Details Clinical Impression: Pain, dental Primary Care Provider: Dhiraj Wilkins ED Provider: Yobani Abad Home Meds and New Rx's Prescriptions: New amoxicillin-pot clavulanate [Augmentin] 875-125 mg tablet 1 tab PO BID Qty: 14 RF: 0 Continued metformin 500 mg Tablet Extended Release 24 Hr 500 mg PO DAILY RF: 0 atorvastatin 80 mg Tablet 80 mg PO QHS RF: 0 aspirin 81 mg Tablet,Delayed Release (Dr/Ec) 81 mg PO DAILY RF: 0 nitroglycerin 0.4 mg Tablet, Sublingual 0.4 mg SUBLINGUAL Q5-15M PRNRF: 0 albuterol sulfate 90 mcg/actuation Hfa Aerosol Inhaler 2 puff INHALATION QID PRNRF: 0 lisinopril 2.5 mg Tablet 5 mg PO DAILY RF: 0 metoprolol succinate 25 mg Tablet Extended Release 24 Hr 25 mg PO DAILY RF: 0 (DME) lancets 26 gauge misc See Dose Instructions .ROUTE .MEDSUPPLY Qty: 50 RF: 0 Discharge Instructions Instructions: Toothache (ED) Additional Instructions: follow up with your dentist as soon as possible if you have worsening pain, fevers, difficulty breathing or inability to swallow liquids return to the emergency department Medical Decision Making 49 yo female comes in with right upper mid molar pain. States it has been broken for a while and due to covid hasn't been able to get it fixed. For the past couple days has increased pain in the tooth, denies fevers or difficulty swallowing or breathing. On exam has no swelling, no submandibular swelling and no pain over hyoid or restricted neck movement, midline uvula and normal oropharynx. No findings to suggest ludiwgs, rpa, ste[place], epiglotitis. Her right mid molar is eroded and tender to percussion no visible abscess. Suspect infetion, will tx with antibiotics and advised f/u with dentist. Differential Diagnosis Differential Diagnosis: pulpitis, abscess HPI General Mode of arrival: ambulatory. Date/Time Provider Initiated Documentation: 05/12/20 20:53. Limitations to Documentation: no limitations. Information obtained by: patient. History of Present Illness 49 year old F presents to the emergency department with the chief complaint of dental pain, described as moderate, No relieving factors improve symptom(s), No exacerbating factors reported . Patient notes no other symptoms.. Related Data Home Medications Medication Instructions Recorded Confirmed albuterol sulfate 2 puff INHALATION QID PRN 12/12/18 05/12/20 aspirin 81 mg PO DAILY 12/12/18 05/12/20 atorvastatin 80 mg PO QHS 12/12/18 05/12/20 lisinopril 5 mg PO DAILY 12/12/18 05/12/20 nitroglycerin 0.4 mg SUBLINGUAL Q5-15M PRN 12/12/18 05/12/20 metoprolol succinate 25 mg PO DAILY 12/13/18 05/12/20 lancets #50 each 12/17/18 metformin 500 mg PO DAILY 08/11/19 05/12/20 amoxicillin-pot clavulanate 1 tab PO BID #14 tab 05/12/20 [Augmentin] Previous Rx's Medication Instructions Recorded lancets #50 each 12/17/18 amoxicillin-pot clavulanate 1 tab PO BID #14 tab 05/12/20 [Augmentin] Allergies Allergy/AdvReac Type Severity Reaction Status Date / Time cefuroxime [From Ceftin] Allergy Intermediate GI Bleeding Unverified 08/11/19 18:14 General Stated Complaint: DentalOral BETTINA: 4 Review of Systems All systems reviewed & are unremarkable except as noted in HPI and below Constitutional Constitutional: Denies chills, Denies fever(s) and Denies weakness Cardiovascular Cardiovascular: Denies chest pain and Denies dyspnea Respiratory Respiratory: Denies cough and Denies dyspnea Gastrointestinal Gastrointestinal: Denies abdominal pain, Denies nausea and Denies vomiting Musculoskeletal Musculoskeletal: Denies joint swelling Neurologic Neurologic: Denies weakness Psychiatric Psychiatric: Denies depression [facility], [facility] Medical History (Updated 05/12/20 @ 21:04 by Yobani Abad MD) CAD (coronary artery disease) (04/30/18) NSTEMI 04/30/2018, transfer from [facility] ER to [facility], cardiac cath 05/01/2018: 70% mid LAD, 50% prox. 1st diagonal, 95% prox RCA; KRISTAL placed in RCA COPD (chronic obstructive pulmonary disease) GERD (gastroesophageal reflux disease) History of coronary atherosclerosis History of non-ST elevation myocardial infarction (NSTEMI) (04/30/18) HTN (hypertension) Surgical History History of heart artery stent (05/01/18) KRISTAL placed in RCA 05/01/2018, Dr. Katheryn Muir, [facility], [place], [place] Hx of exploratory laparotomy 2 exploratory laps: 1st one for tubal , 2nd for ovarian cyst S/P cholecystectomy (~1994) lap [place], [place]; after ERCP for choledocholithiasis (performed at [facility], [place], [place] Family History Mother Stroke onset in her 40's Myocardial infarction COPD (chronic obstructive pulmonary disease) age 68 Heart disease onset in her 40's Social History Smoking/Tobacco Use Status: Former Tobacco Use Quit Date: 04/30/18 Pack-years: 61 Smoking risk assessment performed?: Yes Alcohol Intake: never Drug use: Daily Substance use type: marijuana Do you feel safe at home: Yes Do you feel safe in your relationship?: Yes History History 4 Para Hx # Term Pregnancies 2 Multiple births Hx # Pregnancies Ectopic pregnancies 1 AB induced Hx Number of Living Children 2 AB spontaneous 1 Exam Const General: no acute distress Orientation: alert HENMT Head: normal to inspection Ears: external ears normal General nose exam: external nose normal Mouth: moist mucous membranes Eyes General: appearance normal, both eyes and all related structures Neck Neck: normal visual inspection Resp Effort & Inspection: normal respiratory effort and able to speak in complete sentences Cardio Rate: regular rate Skin General skin exam: no rashes or lesions noted Neuro General: patient alert and patient oriented x3 Extrem General: normal to inspection Psych Mental Status: mental status grossly normal Course Vital Signs Vital signs: Vital Signs Temperature 36.4 C L 05/12/20 20:42 Pulse 73 05/12/20 20:42 Respiratory Rate 16 05/12/20 20:42 Blood Pressure 129/80 05/12/20 20:42 Pulse Oximetry 99 05/12/20 20:42 Temperature 36.4 C L 05/12/20 20:42 Temperature Source Skin 05/12/20 20:42 Pulse 73 05/12/20 20:42 Respiratory Rate 16 05/12/20 20:42 Respiratory Effort 05/12/20 20:51 Blood Pressure 129/80 05/12/20 20:42 Blood Pressure Position Sitting 05/12/20 20:42 Pulse Oximetry 99 05/12/20 20:42 Oxygen Delivery Method Room Air 05/12/20 20:42 Oxygen Flow Rate 0 05/12/20 20:42 Pain Level 8 05/12/20 20:51
[2020-05-12] MEDS: Amoxicillin 875/Clav. 125 TAB PO (21:14)
[2020-05-12] MEDS: Ondansetron O.D.T. 4 MG TABEF PO (21:14)
== END 2020-05-12 21:18 | disposition home or self-care (01) ==
LOC: ER 21:21
PROVIDERS: Emergency Provider Emergency Medicine; PCP Student in an Organized Health Care Education/Training Program
DX: R68.84 Jaw pain (principal); I10 Essential (primary) hypertension; J44.9 Chronic obstructive pulmonary disease, unspecified; Z87.891 Personal history of nicotine dependence
CPT/HCPCS: 99283